=== PATIENT | female | born 1970 | race Caucasian/White ===

== ENCOUNTER 2023-06-14 05:00 | Observation (INO) ==
--- NOTE | 2023-05-24 12:13 | PAT Medication Instructions ---
Medication Instructions Date of Service May 24, 2023 Home Medications atorvastatin 20 mg tablet 20 mg PO QAM hydroxyzine HCl 25 mg tablet 25 mg PO QAM PRN anxiety lisinopril 20 mg tablet 20 mg PO QAM metformin 1,000 mg tablet 1,000 mg PO BID methocarbamol 500 mg tablet 500 mg PO HS PRN Muscle Spasm semaglutide 0.25 mg or 0.5 mg (2 mg/3 mL) subcutaneous pen injector (Ozempic) 0.25 mg subcut WK venlafaxine 37.5 mg tablet 37.5 mg PO HS MEDICATION INSTRUCTIONS: DO NOT take the morning of surgery hydroxyzine HCl 25 mg tablet 25 mg PO QAM PRN anxiety lisinopril 20 mg tablet 20 mg PO QAM metformin 1,000 mg tablet 1,000 mg PO BID Take morning of surgery With a small sip of water, OTHERWISE NOTHING TO EAT OR DRINK AFTER MIDNIGHT: atorvastatin 20 mg tablet 20 mg PO QAM Take evening before surgery venlafaxine 37.5 mg tablet 37.5 mg PO HS methocarbamol 500 mg tablet 500 mg PO HS PRN Muscle Spasm metformin 1,000 mg tablet 1,000 mg PO BID Other Notes As discussed with RN via phone interview, last dose before surgery to be 06/03/23: semaglutide 0.25 mg or 0.5 mg (2 mg/3 mL) subcutaneous pen injector (Ozempic) 0.25 mg subcut WK If you have any questions please call us at [phone] or [phone] or [phone] or [phone]
--- NOTE | 2023-05-28 10:16 | History & Physical Report ---
Date of Service May 28, 2023 Assessment & Plan (1) Bilateral primary osteoarthritis of knee: Plan: Severe end-stage bilateral knee osteoarthritis failed conservative management. Proceed with staged knee replacement starting with the left most symptomatic knee. Risks and benefits discussed. Scheduled for Macho total knee replacement. History of Present Illness Primary Care Provider: ESTHER Pineda Patient denies headaches, sweats, fevers, chills, double vision, blurred vision, cough, sore throat, dysphagia, chest pain, sob, wheezing, n/v/d/c, numbness, tingling, fatigue, urinary symptoms. ROS positive for hypertension, high cholesterol, anxiety/depression, low back pain, arthritic symptoms, obesity, kidney stones. Allergies Allergy/AdvReac Type Severity Reaction Status Date / Time empagliflozin AdvReac Unknown infection Verified 05/23/23 07:34 [From Sulia] Home Medications Medication Instructions Recorded Confirmed Type atorvastatin 20 mg tablet 20 mg PO QAM 05/23/23 05/23/23 History hydroxyzine HCl 25 mg tablet 25 mg PO QAM PRN anxiety 05/23/23 05/23/23 History lisinopril 20 mg tablet 20 mg PO QAM 05/23/23 05/23/23 History metformin 1,000 mg tablet 1,000 mg PO BID 05/23/23 05/23/23 History methocarbamol 500 mg tablet 500 mg PO HS PRN Muscle Spasm 05/23/23 05/23/23 History semaglutide 0.25 mg or 0.5 mg (2 0.25 mg subcut WK 05/23/23 05/23/23 History mg/3 mL) subcutaneous pen injector (Ozempic) venlafaxine 37.5 mg tablet 37.5 mg PO HS 05/23/23 05/23/23 History Past Med/Surg History Medical History Knee pain Diabetes Anxiety Depression Dyslipidemia HTN (hypertension) Surgical History History of esophagogastroduodenoscopy (EGD) Hx of arthroscopy of right knee History of endometrial ablation Hx of hernia repair Hx of cholecystectomy Family History Other No family history of adverse response to anesthesia Social History Smoking Status: Former smoker Tobacco Type: Cigarettes Smoking End Date: quit 20 yrs ago; Second Hand Exposure: No; Do You Dip or Chew Tobacco: No; Tobacco Cessation Education Requested by Patient: No Hx Alcohol Use: No Hx Substance Use: No Preferred Language: Nepali Communication Ability: Effective Insurance Agent Required: No Beliefs That Will Affect Care: None Current Living Situation: Spouse and Family Other Information That Helps Us Care for You: No Feels Safe at Home: Yes Safety Concerns: Feels Safe At This Time Assistive Devices: Glasses Assistive Devices Comment: glasses prn Review of Systems All systems reviewed & are unremarkable except as noted in HPI & below Physical Exam Constitutional: WD/WN, vitals as above Respiratory: normal respiratory effort; no respiratory distress Cardiovascular: Rate/Rhythm: regular rate and regular rhythm Musculoskeletal: Varus alignment both knees with medial joint line tenderness and right knee with arthroscopic scars no scars on left. Painful range of motion with 0 to 90 degrees range of motion right and 15 to 70 degrees on left otherwise circulation and sensorimotor exam intact. Skin: no rashes, warm and dry Neurologic: normal touch/pain/proprioception Psychiatric: A+Ox3, euthymic affect Results & Data Diagnostic Findings Bilateral knee x-rays demonstrate [id number] medial compartment with bone loss and tricompartmental osteoarthritis with varus knees.
--- NOTE | 2023-05-31 10:41 | Anesthesiology Consultation ---
Date of Service May 31, 2023 Assessment & Plan (1) Encounter for pre-operative examination: Chart Review Chart Review: Acceptable Risk for Surgery (pending PCP clearance 06/08/23) and Patient seen in Pre Admission Testing - Awaiting PCP clearance 06/08/23 (S- Leena SANTANA) (Please fax preop testing, including EKG, to PCP for review) - Check BSG AM DOS - Ozempic instructions: Patient takes on (Saturdays). Patient informed at PAT visit to stop 7 days prior to surgery- voiced understanding. Patient's last dose of Ozempic scheduled 06/03/23. Patient will be off Ozempic x 11 days by DOS on 06/14/23 - Patient is NOT an ideal OPJ candidate (currently 23 hour obs) Per PAT appt on 05/31/23, no recent illness/disease exposures, illness related symptoms, or recent illness/disease positive tests. Will leave to surgeon's discretion if preop Covid testing needed Teaching & Discussion Pre-Anesthesia Teaching/Discussion Notes: Instructed NPO after midnight before surgery,except medications with 15 cc of water. Medication instructions provided according to the PAT guidelines. History Surgery Operation Date: 06/14/23 11:15 Proposed Procedures p Left Total Knee Arthroplasty - Curry Balderrama MD Height/Weight Height: 5 ft 1.5 in Weight: 114.5 kg Allergies Allergy/AdvReac Type Severity Reaction Status Date / Time liraglutide [From Victoza] AdvReac Intermediate Stomach Verified 05/31/23 10:35 pains/decreased appetite empagliflozin AdvReac Unknown infection Verified 05/23/23 07:34 [From Jardiance] Medications Home Medications Medication Instructions Recorded Confirmed Last Taken atorvastatin 20 mg tablet 20 mg PO QAM 05/23/23 05/23/23 Unknown hydroxyzine HCl 25 mg tablet 25 mg PO QAM PRN anxiety 05/23/23 05/23/23 Unknown lisinopril 20 mg tablet 20 mg PO QAM 05/23/23 05/23/23 Unknown metformin 1,000 mg tablet 1,000 mg PO BID 05/23/23 05/23/23 Unknown methocarbamol 500 mg tablet 500 mg PO HS PRN Muscle Spasm 05/23/23 05/23/23 Unknown semaglutide 0.25 mg or 0.5 mg (2 0.25 mg subcut WK 05/23/23 05/23/23 Unknown mg/3 mL) subcutaneous pen injector (Ozempic) venlafaxine 37.5 mg tablet 37.5 mg PO HS 05/23/23 05/23/23 Unknown Past Medical History Medical History (Updated 05/31/23 @ 10:38 by Ludy Paz PA-C) Anxiety Depression Diabetes Stable per patient Dyslipidemia HTN (hypertension) Knee pain Bilateral - getting left TKA first per ortho recommendations Low back pain chronic x years Exercise / Class Metabolic Activity III < 4 Walking/Shop/Light housework (no chest pain or SOB with flat surface ambulation ) Past Family History Family History Other No family history of adverse response to anesthesia Past Surgical History Surgical History History of endometrial ablation History of esophagogastroduodenoscopy (EGD) Hx of arthroscopy of right knee Hx of cholecystectomy Hx of hernia repair Past Anesthesia History No Hx of Anesthesia Complications and No Family Hx of Anesthesia Complications (with exception to mother- slow to wake- groggy- no reintubation or ICU stay ) History of PONV No Hx of PONV and No Hx of Motion Sickness Social History Smoking Status: Former smoker Do You Dip or Chew Tobacco: No Smoking End Date: quit 20 yrs ago Hx Alcohol Use: No Hx Substance Use: No substance use type: does not use Review of Systems - Hx of snoring- no known witnessed apnea- no hx of sleep study Patient denies chest pain, shortness of breath, dyspnea on exertion, reflux, cough, wheezing, palpitations. No hx of seizures, stroke, CO. No hx of blood clots or blood transfusions Physical Exam Vital Signs VITALS BP 111/75 P 94 TEMP SP02 97% RESP 16 Constitutional no acute distress ENMT Mouth: no TMJ clicking Thyromental Distance: > or= 3.5 Finger Breadths (3.5) Mallampati Class: III Broken teeth on the side and molars Missing molars Neck + thick neck (mild); neck extension not limited Respiratory normal respiratory effort; no respiratory distress Auscultation: lungs clear to auscultation bilaterally; no wheezes Cardiovascular Rate/Rhythm: regular rate and regular rhythm Heart Sounds: no murmur Vessels: no carotid bruit Musculoskeletal Spine: + pain with cervical ROM (mild) Extremities: extremities normal to inspection Psychiatric Orientation: alert Lab Results Anesthesia Preop Results Results Anesthesia Widget: WBC 8.82 K/ul (4.8-10.8) 05/31/23 Hgb 13.1 g/dl (12.0-16.0) 05/31/23 Hct 39.9 % (37.0-47.0) 05/31/23 Plt 320 K/uL (130-400) 05/31/23 Na 138 mmol/L (136-145) 05/31/23 K 4.4 mmol/L (3.5-5.1) 05/31/23 Cl 103 mmol/L (98-107) 05/31/23 CO2 26 mmol/L (21-32) 05/31/23 BUN 9 mg/dl (6-23) 05/31/23 Creat 0.48 mg/dl (0.6-1.2) L 05/31/23 Glucose Level 197 mg/dl (70-99(Fasting)) H 05/31/23 PT 10.7 Seconds (9.0-12.0) 05/31/23 PTT 29 Seconds (21-31) 05/31/23 INR 1.0 (0.9-1.1) 05/31/23 HA1c 8.2 % (4.5-5.6) H 05/31/23 Urine Color Yellow 05/31/23 Urine Appearance Clear (Clear) 05/31/23 Urine pH 5.5 (4.5-7.5) 05/31/23 Urine Specific [place] 1.012 (1.000-1.030) 05/31/23 Urine Protein Negative (Negative) 05/31/23 Urine Glucose (UA) Negative (Negative) 05/31/23 Urine Ketones Negative (Negative) 05/31/23 Urine Blood Negative (Negative) 05/31/23 Urine Nitrite Negative (Negative) 05/31/23 Urine Bilirubin Negative (Negative) 05/31/23 Urine Urobilinogen Negative (Negative) 05/31/23 Urine Leukocyte Esterase Trace (Negative) H 05/31/23 Urine WBC (Auto) 6-10 /hpf (0-5) H 05/31/23 Urine RBC (Auto) 0-2 /hpf (0-2) 05/31/23 Urine Hyaline Casts (Auto) 0-2 /lpf (0-2) 05/31/23 Urine Epithelial Cells (Auto) 3-5 /hpf (0-2) H 05/31/23 Urine Bacteria (Auto) None Seen (None Seen) 05/31/23 Blood Type A Positive 05/31/23 Antibody Screen NEGATIVE 05/31/23 Testing Electrocardiogram Date: 05/31/23 Findings: + NSR @ (85bpm) Incomplete RBBB Poor R wave progression, consider anterior CO vs lead placement vs LVH (Discussed with Dr. Bro- EKG from [facility] from 12/2022 showed poor R wave progression but initial forces of leads differ, DSE from 2020 WNL, patient with PCP clearance 06/08/23- patient can proceed as scheduled without additional work up at this time) Chest X-Ray Date: 05/31/23 FINDINGS: Lung volumes are normal. Lungs are clear. There is no pneumothorax or pleural effusion. There is borderline cardiomegaly. Mediastinal contours are normal. There is no evidence for pulmonary edema. IMPRESSION: No acute cardiopulmonary findings. Stress Test Date: 09/09/20 Type: DSE Resting EF: 62% Resting LV Function: normal Resting RWMA: + none Negative DSE and EKG for ischemia at MPHR 86% Stress EKG normal- occasional PVCs with stress- ventricular couplets noted with stress. Hypertensive hemodynamic response to dobutamine. Grade I DD. Mild ND
[2023-06-14] MEDS: CeleBREX 200 MG CAP PO SCH (05:48)
[2023-06-14] MEDS: ACETAMINOPHEN 500 MG TAB PO SCH ×2 (05:48→13:42)
[2023-06-14] MEDS: GABAPENTIN 900 MG DOSE PO SCH (05:48)
[2023-06-14] MEDS: METOCLOPRAMIDE HCL 10 MG TABLET PO SCH (05:48)
[2023-06-14] MEDS: LR 60ML/HR IV SCH (05:49)
[2023-06-14] MEDS: LR 500ML BOLUS, THEN 15ML/HR IV SCH (05:49)
[2023-06-14] MEDS: FAMOTIDINE 20 MG TAB PO SCH (05:49)
[2023-06-14] MEDS ORDERED: BUPIVACAINE 0.5 % 5 MG/1 ML PF 10ML VIAL ONE (06:07)
[2023-06-14] MEDS ORDERED: ROPIVACAINE 0.5% 5 MG/ML 30 ML VIAL ONE (06:07)
[2023-06-14] MEDS ORDERED: ONDANSETRON INJ 2 MG/ML 2 ML VIAL ONE (06:33)
[2023-06-14] MEDS ORDERED: DEXAMETHASONE SOD INJ 4 MG/ML VIAL ONE (06:33)
[2023-06-14] MEDS ORDERED: fentaNYL citrate PF 100 MCG/2 ML VIAL ONE ×2 (06:33→07:28)
[2023-06-14] MEDS ORDERED: LIDOCAINE 2% 2 ML VIAL/AMP(20MG/ML) INFIL ONE (06:33)
[2023-06-14] MEDS ORDERED: PROPOFOL IV EMULSION 10 MG/ML 20 ML VIAL IV ONE ×3 (06:33→06:34)
[2023-06-14] MEDS ORDERED: MIDAZOLAM HCL 1 MG/ML 2ML VIAL ONE (06:33)
--- NOTE | 2023-06-14 06:43 | Anesthesiology Consultation ---
Date of Service June 14, 2023 History Surgery Operation Date: 06/14/23 07:00 Proposed Procedures p Left Total Knee Arthroplasty - Curry Balderrama MD Height/Weight Height: 5 ft 1.5 in Weight: 113.9 kg Allergies Allergy/AdvReac Type Severity Reaction Status Date / Time liraglutide [From Victoza] AdvReac Intermediate Stomach Verified 06/14/23 05:39 pains/decreased appetite empagliflozin AdvReac Unknown infection Verified 06/14/23 05:39 [From Jardiance] Medications Home Medications Medication Instructions Recorded Confirmed Last Taken atorvastatin 20 mg tablet 20 mg PO QAM 05/23/23 06/14/23 06/14/23 03:00 hydroxyzine HCl 25 mg tablet 25 mg PO QAM PRN anxiety 05/23/23 06/14/23 Unknown lisinopril 20 mg tablet 20 mg PO QAM 05/23/23 06/14/23 06/13/23 05:00 metformin 1,000 mg tablet 1,000 mg PO BID 05/23/23 06/14/23 06/13/23 18:00 methocarbamol 500 mg tablet 500 mg PO HS PRN Muscle Spasm 05/23/23 06/14/23 06/13/23 18:00 semaglutide 0.25 mg or 0.5 mg (2 0.25 mg subcut WK 05/23/23 06/14/23 06/03/23 mg/3 mL) subcutaneous pen injector (Ozempic) venlafaxine 37.5 mg tablet 37.5 mg PO HS 05/23/23 06/14/23 06/13/23 18:00 Active Medications Generic Name Dose Route Start Last Admin Trade Name Freq PRN Reason Stop Dose Admin Acetaminophen 1,000 mg 06/14/23 06:00 06/14/23 05:48 Acetaminophen 500 Mg Tab PO 06/14/23 18:00 1,000 mg PREOP SHELLY Administration Celecoxib 200 mg 06/14/23 06:00 06/14/23 05:48 Celebrex 200 Mg Cap PO 06/14/23 18:00 200 mg PREOP SHELLY Administration Famotidine 20 mg 06/14/23 06:00 06/14/23 05:49 Famotidine 20 Mg Tab PO 06/14/23 18:00 20 mg PREOP SHELLY Administration Gabapentin 900 mg 06/14/23 06:00 06/14/23 05:48 Gabapentin 900 Mg Dose PO 06/14/23 18:00 900 mg PREOP SHELLY Administration Lactated Ringer's 1,000 mls @ 15 mls/hr 06/14/23 06:00 06/14/23 05:49 Lr IV 06/14/23 18:00 15 mls/hr .Q24H SHELLY Administration Lactated Ringer's 1,000 mls @ 60 mls/hr 06/14/23 06:00 06/14/23 05:49 Lr IV 06/14/23 22:39 Not Given .[id number] SHELLY Metoclopramide HCl 10 mg 06/14/23 06:00 06/14/23 05:48 Metoclopramide Hcl 10 Mg Tablet PO 06/14/23 18:00 10 mg PREOP SHELLY Administration NPO Date Last Intake of Fluids: 06/13/23 Time Last Intake of Fluids: 21:00 Date Last Intake of Solids: 06/13/23 Time Last Intake of Solids: 21:00 Past Medical History Medical History Low back pain chronic x years Knee pain Bilateral - getting left TKA first per ortho recommendations Diabetes Stable per patient Anxiety Depression Dyslipidemia HTN (hypertension) Past Family History Family History Other No family history of adverse response to anesthesia Past Surgical History Surgical History (Updated 06/14/23 @ 05:39 by Sherine Beltran RN) History of tubal ligation History of esophagogastroduodenoscopy (EGD) Hx of arthroscopy of right knee History of endometrial ablation Hx of hernia repair Hx of cholecystectomy Social History Smoking Status: Former smoker Do You Dip or Chew Tobacco: No Smoking End Date: quit 20 yrs ago Hx Alcohol Use: No Hx Substance Use: No substance use type: does not use Physical Exam Vital Signs Last Vital Signs Temp 36.8 C 06/14/23 05:42 Pulse 97 H 06/14/23 05:42 Resp 18 06/14/23 05:42 BP 149/81 H 06/14/23 05:42 Pulse Ox 95 06/14/23 05:42 O2 Del Method Room Air 06/14/23 05:42 Testing Laboratory Results 06/14/23 05:37 POC Glucose 213 H Electrocardiogram Date: 05/31/23 Findings: + NSR @ (85bpm) Incomplete RBBB Poor R wave progression, consider anterior IL vs lead placement vs LVH (Discussed with Dr. Bro- EKG from [facility] from 12/2022 showed poor R wave progression but initial forces of leads differ, DSE from 2020 WNL, patient with PCP clearance 06/08/23- patient can proceed as scheduled without additional work up at this time) Chest X-Ray Date: 05/31/23 FINDINGS: Lung volumes are normal. Lungs are clear. There is no pneumothorax or pleural effusion. There is borderline cardiomegaly. Mediastinal contours are normal. There is no evidence for pulmonary edema. IMPRESSION: No acute cardiopulmonary findings. Stress Test Date: 09/09/20 Type: DSE Resting EF: 62% Resting LV Function: normal Resting RWMA: + none Negative DSE and EKG for ischemia at MPHR 86% Stress EKG normal- occasional PVCs with stress- ventricular couplets noted with stress. Hypertensive hemodynamic response to dobutamine. Grade I DD. Mild CO
[2023-06-14] MEDS ORDERED: PROMETHAZINE HCL 6.25 MG in SODIUM CHLORIDE 0.9% 50 ML IV PRN (06:46)
[2023-06-14] MEDS ORDERED: ATROPINE SULFATE 0.1 MG/ML 10ML SYR IV PRN (06:46)
[2023-06-14] MEDS ORDERED: ePHEDrine sulfate 50 MG/ML AMP IV PRN (06:46)
--- NOTE | 2023-06-14 06:49 | History & Physical Bridge Note ---
Date of Service June 14, 2023 History & Physical Bridge Note I have examined the patient, reviewed the History & Physical and in the interval since the performance of the History & Physical I have noted the following changes of clinical significance: no changes noted
[2023-06-14] MEDS: TRANEXAMIC ACID 1,000 MG **IV Pre-op IV SCH (06:50)
[2023-06-14] MEDS: ceFAZolin 2000MG 2,000 MG/15 ML SYR IV SCH ×2 (07:13→16:15)
[2023-06-14] MEDS ORDERED: ROCURONIUM BROMIDE 10 MG/ML 5 ML VIAL IV ONE (07:30)
[2023-06-14] MEDS ORDERED: HYDROmorphone INJ 2 MG/ML SYR/VIAL ONE (07:42)
[2023-06-14] MEDS ORDERED: SUGAMMADEX SODIUM 200 MG/2 ML VIAL IV ONE (07:56)
[2023-06-14] MEDS: ROPIV 0.5% 246mg, Ketorolac 30mg, EPINEPHrine 0.5mg in NSS INFIL SCH (08:28)
[2023-06-14] MEDS: TRANEXAMIC ACID 1,000 MG **IV Intra-op IV SCH (09:03)
[2023-06-14] MEDS: ORTHO JOINT ANESTHETIC ONE (09:04)
--- NOTE | 2023-06-14 09:07 | Operative Report ---
Post Operative Report Pre & Post Diagnosis Operation Date: 06/14/23 07:00 Pre-Op Diagnosis: Left Knee Osteoarthritis, morbid obesity BMI 46.7 Post-Op Diagnosis: Left Knee Osteoarthritis, morbid obesity BMI 46.7 I identified the patient and participated in the time-out.: Yes Procedure Operation Date: 06/14/23 07:00 Actual Procedures p Left Total Knee Arthroplasty(Left), lateral release, warner and Acticoat superficial wound VAC application, increased difficulty morbid obesity BMI 46.7- Curry Balderrama MD Surgeon Curry Balderrama MD Application Support Lead Antoni REY Estimated Blood Loss 5 Findings Consistent with Post-Op Diagnosis Specimens Bone cuts Drains 2 Hemovac Anesthesia Type General Regional Complications none Disposition Disposition: Recovery Room Indications 52-year-old female with severe bilateral knee osteoarthritis. She is completely disabled by the pain and has significant decreased range of motion both knees and has failed all conservative management including injections, therapy and bracing. Description of Procedure Patient taken to the operating room the size under general regional block anesthesia. Patient was placed supine on the operating table. A pneumatic tourniquet was placed about the obese left upper thigh. The left lower extremity was prepped and draped in sterile fashion. Knee exam demonstrated 10 through 100 degrees range of motion no pseudolaxity and stiff knee and an obese leg. The leg was elevated exsanguinated with an Esmarch bandage and pneumatic tourniquet was raised to 350 millimeters of mercury. Skin incised sharply in longitudinal fashion. Subcutaneous flaps elevated. Incision was made through the medial retinaculum extending up in the mid third of the quadriceps tendon and down to the medial tibial tubercle. Intra-articular findings demonstrated tricompartmental osteoarthritis mainly medial compartment bone loss in the medial compartment varus knee large posterior osteophytes medially. The Outright triathlon total knee arthroplasty system was used. To expose the knee the infrapatellar fat pad was resected. The meniscal remnants and cruciate ligaments were resected. The anterior fat pad over the femur in the area of the location of the anterior flange of the femoral component was resected. The lateral synovial bands were released. The femur was exposed. An intramedullary drill hole was made into the canal. A guide adrienne was placed. Distal femoral cutting guide was adjusted to resect a 5 degree valgus cut with 10 millimeters distal femur resected. The knee was extended and a subperiosteal peel lateral release was performed around the patella. Patella width was measured and width was reproduced using a freehand cut technique and a 31 x 9 symmetrical patella component. The 3 drill holes were made and the excess lateral facet was beveled off to prevent any impingement. Attention was taken back to the femur which was exposed with retractors and the femoral sizing guide was pinned in position. The drill holes were placed in 3 of external rotation to match the epicondylar axis. The femur sized for a 4 component. The 4-in-1 cutting block was placed and then the anterior posterior and chamfer cuts are made. The tibia was then subluxed. The external tibial cutting guide was adjusted to make a perpendicular cut to the long axis of the tibia below the most deficient bone loss side. Cut was adjusted for slope. A lamina twisting operator was used and the flexion extension gaps were balanced. No releases were required. All posterior osteophytes removed. All meniscal remnants were resected. The tibia exposed and the trial tibial component size 3 was maximally externally rotated in line with the tibial tubercle and pinned in position. The punch for stem was used. The notch cutting device was centered appropriately and the femoral notch cut was made. The femoral trial was inserted. Trial tibial inserts were placed and size 11 gave balanced ligaments through flexion and extension. Patella tracking was assessed. The patella tracked laterally so I had to do a lateral release which I did extra-articular early leaving the synovium intact and the patella tracked centrally afterward. The trial components were then removed and the orthomix anesthetic cocktail was injected per protocol. The knee was then copiously irrigated with pulsatile lavage saline solution. Final components were then cemented with Refobacin cement. Xperience irrigation placed over metal compoments prior to polyethylene insertion. Final components were Macho triathlon size 4 left femoral component, 3 tibial component with a size 11 X.3 polyethylene posterior stabilized tibial bearing insert and a 31 x 9 mm symmetrical X.3 polyethylene patella component. After the cement cured further pulsatile lavage irrigation was then performed with Xperience and 2 Hemovac drains were brought out laterally. The quadriceps tendon and medial retinaculum were closed with figure of 8 #1 Vicryl sutures. The knee was taken through full range of motion and the repair was secure. Knee range of motion was 0 through 125 degrees. The subcutaneous tissues were closed with 2-0 Vicryl sutures. Skin was closed with silvino. A warner and Acticoat superficial wound VAC was applied. The patient tolerated the procedure well. Antoni REY was my physician butcher assistant who participated as litigation assistant and was involved in all aspects of the procedure including patient positioning prepping and draping,leg positioning ,soft tissue retraction and instrument management and participated in the closing and wound VAC application and will participate in postoperative care of the patient. The patient tolerated the procedure well. There was increased level difficulty due to morbid obesity adding 30 minutes of the procedure time I attest to the content of the Intraoperative Record and any orders documented therein. Any exceptions are noted below.
[2023-06-14] MEDS: INSULIN HUMAN REGULAR SC STA (09:38)
[2023-06-14] MEDS ORDERED: NovoLIN-R INSULIN PER UNIT CHARGE SC STA (09:40)
[2023-06-14] MEDS: HYDROmorphone INJ 2 MG/ML SYR/VIAL IV PRN (10:05)
[2023-06-14] MEDS ORDERED: ONDANSETRON INJ 2 MG/ML 2 ML VIAL IV PRN (11:00)
[2023-06-14] MEDS ORDERED: hydrOXYzine HCl 25 MG TAB PO PRN (11:00)
[2023-06-14] MEDS ORDERED: oxyCODONE HCL IR 5 MG TAB (IMMEDIATE RELEASE) PO PRN (11:00)
[2023-06-14] MEDS ORDERED: HYDROmorphone INJ 0.5 MG/0.5 ML SYR IV PRN (11:00)
[2023-06-14] MEDS ORDERED: NALOXONE HCL 0.4 MG/1 ML VIAL/CARP IV PRN (11:00)
[2023-06-14] MEDS ORDERED: MAGNESIUM HYDROXIDE SUSP 30 ML UDC PO PRN (11:00)
[2023-06-14] MEDS ORDERED: diphenhydrAMINE 50 MG/ML VIAL IV PRN (11:00)
[2023-06-14] MEDS ORDERED: PHARMACY GLYCEMIC MGMT CONSULT PRN (11:00)
[2023-06-14] MEDS ORDERED: bisacodyL 10 MG SUPP PR PRN (11:00)
[2023-06-14] MEDS: NovoLIN-R INSULIN PER UNIT CHARGE ONE (11:04)
[2023-06-14] MEDS: SODIUM CHLORIDE 0.9% 1,000 ML IV SCH (11:15)
--- NOTE | 2023-06-14 11:56 | Pharmacy Report ---
Pharmacy Glycemic Short Note 2 - Date of Service June 14, 2023 - Glycemic Short BSG Results (Last 24 hours): 06/14/23 06/14/23 06/14/23 05:37 09:31 10:24 POC Glucose 213 H 271 H 266 H 06/14/23 11:28 POC Glucose 287 H OUTPATIENT ANTIDIABETIC REGIMEN: * metformin 1000 mg BID, ozempic 0.25 mg weekly * A1c 8.2% 05/31/23 ASSESSMENT: * Patient admitted POD #0 from left total knee arthroplasty, appears to have received 8 mg of dexamethasone IV in the OR * BSGs elevated upon admission, likely to increase with steroid dose. Patient received 5 units of regular insulin subcutaneously in PACU for BSG 271 mg/dL * BSG 287 mg/dL ~1130. Will give 1x dose of lantus now with additional scale for PM if needed. Start novolog between adjusted body weight and actual body weight stress of 3. Monitor. * Overnight checks. PLAN FOR INPATIENT GLYCEMIC CONTROL: * Hold outpatient oral diabetes medications * Basal insulin * Lantus 20 units x 1 now. Scale for PM 0/10 units * Bolus insulin * NovoLog per scale ACHS or Q6hrs while NPO * Goal Range: Low 110 mg/dL - High 140 mg/dL * Correction Factor: 25 mg/dL/unit * Nutritional / Prandial insulin per carb ratio of 1 unit per 6 grams CHO consumed
[2023-06-14] MEDS: INSULIN ASPART PER UNIT CHARGE SC SCH ×2 (12:27→23:34)
[2023-06-14] MEDS: LANTUS PER UNIT CHARGE SC ONE ×2 (12:28→20:33)
--- NOTE | 2023-06-14 13:03 | XRay Report ---
XR knee LT 1 or 2V routine CLINICAL HISTORY: Surgical Post Op TECHNIQUE: 2 views of the left knee were obtained. Comparison: None available at the time of this dictation. FINDINGS: Patient is status post total knee arthroplasty with expected postsurgical changes including soft tiss ue swelling and subcutaneous emphysema. No periarticular lucency or hardware fracture is seen. IMPRESSION: Expected postoperative appearance status post placement of total knee arthroplasty. ACT 112: Negative or not required by law. Electronically signed by: Jeb Mahoney M.D. 06/14/2023 1:02 PM
--- NOTE | 2023-06-14 13:09 | Anesthesiology Progress Note ---
Date of Service June 14, 2023 Anesthesia Post Procedure Vital Signs Vital Signs: Temp Pulse Pulse Resp BP Pulse Ox O2 Del Method 06/14/23 13:03 36.6 C 89 17 117/74 95 Room Air 06/14/23 11:55 36.6 C 90 16 119/74 96 Nasal Cannula 06/14/23 11:28 36.7 C 93 H 17 133/79 95 Nasal Cannula 06/14/23 11:00 37 C 96 H 17 154/80 H 95 Nasal Cannula 06/14/23 10:40 36.7 C 93 H 14 137/89 94 Nasal Cannula 06/14/23 10:30 97 H 12 132/93 92 Nasal Cannula 06/14/23 10:20 37 C 95 H 12 147/81 H 93 Nasal Cannula 06/14/23 10:10 93 H 14 124/86 92 Nasal Cannula 06/14/23 10:00 95 H 18 157/87 H 93 Oxymask 06/14/23 09:50 96 H 16 138/87 93 Oxymask 06/14/23 09:40 36.8 C 80 12 130/82 95 Oxymask 06/14/23 09:29 37.3 C 79 14 125/81 94 Oxymask 06/14/23 05:42 36.8 C 97 H 18 149/81 H 95 Room Air O2 Flow Rate 06/14/23 13:03 06/14/23 11:55 2 06/14/23 11:28 2 06/14/23 11:00 4 06/14/23 10:40 4 06/14/23 10:30 4 06/14/23 10:20 4 06/14/23 10:10 4 06/14/23 10:00 6 06/14/23 09:50 10 06/14/23 09:40 12 06/14/23 09:29 12 06/14/23 05:42 Pain Intensity Bilateral Knee: Pain Intensity: 4 Left Knee: Pain Intensity: 10 Transfer of Care Handoff Completed per policy Notes Mental Status: alert / awake / arousable and participated in evaluation Nausea / Vomiting: adequately controlled Pain: adequately controlled Airway Patency, RR, SpO2: stable & adequate BP & HR: stable & adequate Hydration State: stable & adequate Anesthetic Complications: no major complications apparent and Pt Satisfied with anesthetic care
--- NOTE | 2023-06-14 13:41 | Consultation ---
Date of Consultation June 14, 2023 Assessment & Plan (1) Bilateral primary osteoarthritis of knee: (2) Diabetes: (3) HTN (hypertension): (4) Anxiety: This is 52 year old F who has a significant PMH of T2DM, HTN, HLD who presents to elective knee replacement by Dr. Balderrama. Left knee osteoarthritis Status post left knee total replacement, POD #[address] Balderrama EBL:5 mL, drainage: 75 ml She tolerated procedure well Pain/wound management per orthopedic Activity and therapy as prescribed by orthopedic Tyler for DVT prophylaxis per orthopedic Monitor hemoglobin postoperatively encourage incentive spirometry, wean off o2 as able T2DM, uncontrolled a1c 8.2 hold metformin/ozempic lantus/novolog per protocol glycemic pharmacy managing, appreciate their assistance goal a1c given age < 7 HTN chronic, stable continue lisinopril with parameters HLD chronic, stable continue statin Anxiety continue effexor mood stable DVT ppx: Xarelto FULL CODE Dispo: per primary PCP: Leena Alcazar Thank you for this consultation. We will follow the patient with you during their hospital stay. You can reach a member of the [facility] Hospitalist Team 29/08 via hospitalist role on tiger text. A total of 45 minutes was spent coordinating, documenting, and providing care for this patient excluding time spent in the performance of separately billed services. This included personally viewing all current laboratories and imaging studies, medication reconciliation, outpatient chart review, and discussion with specialists. Supervising Physician Co-Signing Physician Notes I have seen and discussed the case with the collaborating advanced practitioner. I agree with the above H&P. I have reviewed and confirmed the patients medical history, the findings on physical examination, and the patients diagnosis and treatment plan with Jasiel ARREDONDO and agree with the information documented. In short, Ms. May is now s/p elective TKA of left knee. Patient denies any acute concerns on exam. Medical comanagement consult for chronic conditions: HTN, DMTII, HLD GENERAL APPEARANCE: AxOx4, generally well-appearing, fatigued s/p post op HEENT: NC, AT. MMM. EOMI, clear conjunctiva, oropharynx clear. NECK: Supple without lymphadenopathy. No stiffness or restricted ROM. HEART: Normal rate and regular rhythm, normal S1/S1, no m/r/g LUNGS: CTAB, moving air well. No crackles or wheezes are heard. ABDOMEN: Soft, nontender, nondistended with good bowel sounds heard. BACK: No CVAT, no obvious deformity. EXTREMITIES: Without cyanosis, clubbing or edema. Left extremity wrapped with TIFFANY bandage NEUROLOGICAL: Grossly nonfocal. Alert and oriented, moving all 4 extremities. CN not formally tested but appear grossly intact Skin: Warm and dry without any rash. #Left knee osteoarthritis s/p arthoplasty Trend CBC post op DVT ppx, PT/OT, and dispo per primary #DMTII On ozempic (sundays), metformin -SSI while inpatient #HTN resume home regimen Plan as above I spent a total of 15 minutes coordinating, documenting, and providing care for this patient excluding time spent in the performance of separately billed services. All of the aforementioned completed outside of collaborating with the assigned advanced practitioner for a full treatment plan. I have reviewed the advanced practitioner's documentation, and I agree with, and take responsibility for the plan of care History of Present Illness Requesting Physician: Post op medical management Reason for Consultation: Post op medical management Attending Physician: Curry Balderrama MD History of Present Illness This is 52 year old F who has a significant PMH of T2DM, HTN, HLD who presents to elective knee replacement by Dr. Balderrama. She tolerated the procedure well. She is drowsy post op. SHe denies f/c/s, chest pain, sob, n/v/d, abd pain. She denies any issues with constipation. Her meds were reconciled. She offers no post operative concerns. Allergies Allergy/AdvReac Type Severity Reaction Status Date / Time liraglutide [From Victoza] AdvReac Intermediate Stomach Verified 06/14/23 05:39 pains/decreased appetite empagliflozin AdvReac Unknown infection Verified 06/14/23 05:39 [From Jardiance] Home Medications Medication Instructions Recorded Confirmed Type atorvastatin 20 mg tablet 20 mg PO QAM 05/23/23 06/14/23 History hydroxyzine HCl 25 mg tablet 25 mg PO QAM PRN anxiety 05/23/23 06/14/23 History lisinopril 20 mg tablet 20 mg PO QAM 05/23/23 06/14/23 History metformin 1,000 mg tablet 1,000 mg PO BID 05/23/23 06/14/23 History methocarbamol 500 mg tablet 500 mg PO HS PRN Muscle Spasm 05/23/23 06/14/23 History semaglutide 0.25 mg or 0.5 mg (2 0.25 mg subcut WK 05/23/23 06/14/23 History mg/3 mL) subcutaneous pen injector (Ozempic) venlafaxine 37.5 mg tablet 37.5 mg PO HS 05/23/23 06/14/23 History Patient History Medical History (Updated 06/14/23 @ 13:35 by Yumiko Weathers PA-C) Low back pain chronic x years Knee pain Bilateral - getting left TKA first per ortho recommendations Diabetes Stable per patient Anxiety Depression Dyslipidemia HTN (hypertension) Surgical History History of tubal ligation History of esophagogastroduodenoscopy (EGD) Hx of arthroscopy of right knee History of endometrial ablation Hx of hernia repair Hx of cholecystectomy Family History Other No family history of adverse response to anesthesia Social History Smoking Status: Former smoker Tobacco Type: Cigarettes Smoking End Date: quit 20 yrs ago; Second Hand Exposure: No; Do You Dip or Chew Tobacco: No; Tobacco Cessation Education Requested by Patient: No Hx Alcohol Use: No Hx Substance Use: No Preferred Language: Greenlandic Communication Ability: Effective Heating And Ventilating Worker Required: No Beliefs That Will Affect Care: None Current Living Situation: Spouse and Family Other Information That Helps Us Care for You: No Feels Safe at Home: Yes Safety Concerns: Feels Safe At This Time Assistive Devices: Glasses Assistive Devices Comment: glasses prn Review of Systems Review of Systems: All systems reviewed & are unremarkable except as noted in HPI & below Physical Exam Physical Exam: please refer to Dr. Willis addendum for physical exam findings Results & Data Vital Signs (Past 12 Hours) Vital Signs Temp Pulse Pulse Resp BP Pulse Ox O2 Del Method 06/14/23 13:03 36.6 C 89 17 117/74 95 Room Air 06/14/23 11:55 36.6 C 90 16 119/74 96 Nasal Cannula 06/14/23 11:28 36.7 C 93 H 17 133/79 95 Nasal Cannula 06/14/23 11:00 37 C 96 H 17 154/80 H 95 Nasal Cannula 06/14/23 10:40 36.7 C 93 H 14 137/89 94 Nasal Cannula 06/14/23 10:30 97 H 12 132/93 92 Nasal Cannula 06/14/23 10:20 37 C 95 H 12 147/81 H 93 Nasal Cannula 06/14/23 10:10 93 H 14 124/86 92 Nasal Cannula 06/14/23 10:00 95 H 18 157/87 H 93 Oxymask 06/14/23 09:50 96 H 16 138/87 93 Oxymask 06/14/23 09:40 36.8 C 80 12 130/82 95 Oxymask 06/14/23 09:29 37.3 C 79 14 125/81 94 Oxymask 06/14/23 05:42 36.8 C 97 H 18 149/81 H 95 Room Air O2 Flow Rate 06/14/23 13:03 06/14/23 11:55 2 06/14/23 11:28 2 06/14/23 11:00 4 06/14/23 10:40 4 06/14/23 10:30 4 06/14/23 10:20 4 06/14/23 10:10 4 06/14/23 10:00 6 06/14/23 09:50 10 06/14/23 09:40 12 06/14/23 09:29 12 06/14/23 05:42 Laboratory Results Preoperative lab work on 05/30 revealed an unremarkable CBC and CMP except for mild hyperglycemia at 197, A1c was 8.2, urinalysis was negative for acute infection Diagnostic Findings Knee X-Ray 06/14/23 09:34 XR knee LT 1 or 2V routine CLINICAL HISTORY: Surgical Post Op TECHNIQUE: 2 views of the left knee were obtained. Comparison: None available at the time of this dictation. FINDINGS: Patient is status post total knee arthroplasty with expected postsurgical changes including soft tissue swelling and subcutaneous emphysema. No periarticular lucency or hardware fracture is seen. IMPRESSION: Expected postoperative appearance status post placement of total knee ar throplasty. ACT 112: Negative or not required by law. Electronically signed by: Jeb Mahoney M.D. 06/14/2023 1:02 PM Medications Administered Current Inpatient Medications Acetaminophen (Acetaminophen 500 Mg Tab) 1,000 mg PO Q8 [facility] Stop: 07/14/23 13:59 Atorvastatin Calcium (Atorvastatin 20 Mg Tab) 20 mg PO QAM [facility] Stop: 07/15/23 08:59 Bisacodyl (Bisacodyl 10 Mg Supp) 10 mg NV DAILY PRN PRN Reason: Constipation Stop: 07/14/23 10:59 Diphenhydramine HCl (Diphenhydramine 50 Mg/Ml Vial) 25 mg IV Q8H PRN PRN Reason: Itching Stop: 07/14/23 10:59 Docusate Sodium (Docusate Sodium 100 Mg Cap) 100 mg PO BID [facility] Stop: 07/14/23 20:59 Hydromorphone HCl (Hydromorphone Inj 0.5 Mg/0.5 Ml Syr) 0.5 mg IV Q4H PRN PRN Reason: Pain or Pre PT Stop: 06/28/23 10:59 Hydroxyzine HCl (Hydroxyzine Hcl 25 Mg Tab) 25 mg PO QA PRN PRN Reason: anxiety Stop: 07/14/23 10:59 Sodium Chloride (Nss) 1,000 mls @ 100 mls/hr IV .Q10H [facility] Stop: 06/15/23 06:00 Last Admin: 06/14/23 11:15 Dose: 100 mls/hr Cefazolin Sodium (Ancef 2000mg) 2,000 mg in 15 mls @ 3.75 mls/min IV Q8H [facility]; Protocol Stop: 06/14/23 23:33 Insulin Aspart (Insulin Aspart Per Unit Charge) 0 units SC ACHS [facility] Stop: 07/14/23 11:34 Last Admin: 06/14/23 12:27 Dose: 9 units Insulin Aspart (Insulin Aspart Per Unit Charge) 0 units SC TODAY@0000,0400 [facility] Stop: 06/15/23 04:01 Lisinopril (Lisinopril 20 Mg Tab) 20 mg PO QAM [facility] Stop: 07/15/23 08:59 Magnesium Hydroxide (Magnesium Hydroxide Susp 30 Ml Udc) 30 ml PO Q6H PRN PRN Reason: Constipation Stop: 07/14/23 10:59 Miscellaneous Information (Pharmacy Glycemic Mgmt Consult) 1 each N/A UD PRN PRN Reason: Consult Stop: 07/14/23 10:59 Multivitamins (Multivitamin Tab) 1 tab PO QAM [facility] Stop: 07/15/23 08:59 Naloxone HCl (Naloxone Hcl 0.4 Mg/1 Ml Vial/Carp) 0.1 mg IV Q5M PRN PRN Reason: Oversedation/Resp Depression Stop: 07/14/23 10:59 Ondansetron HCl (Ondansetron Inj 2 Mg/Ml 2 Ml Vial) 4 mg IV Q6H PRN PRN Reason: Nausea And Vomiting Stop: 07/14/23 10:59 Oxycodone HCl (Oxycodone Hcl Ir 5 Mg Tab (Immediate Release)) 5 - 10 mg PO Q4H PRN PRN Reason: Pain or Pre PT Stop: 06/28/23 10:59 Rivaroxaban (Rivaroxaban 10 Mg Tablet) 10 mg PO DAILY [facility] Stop: 07/15/23 08:59 Sennosides (Senna 8.6 Mg Tab) 17.2 mg PO HS [facility] Stop: 07/14/23 20:59 Venlafaxine HCl (Venlafaxine Hcl 37.5 Mg Tab) 37.5 mg PO [facility] Stop: 07/14/23 20:59 ECG Additional Comments: Preoperative EKG reviewed in person interpreted by myself as a ventricular rate of 85 bpm, normal sinus rhythm, incomplete right bundle branch block
[2023-06-14] MEDS ORDERED: LANTUS PER UNIT CHARGE SC ONE (14:15)
[2023-06-14] MEDS: DOCUSATE SODIUM 100 MG CAP PO SCH (20:21)
[2023-06-14] MEDS: VENLAFAXINE HCL 37.5 MG TAB PO SCH (20:21)
[2023-06-14] MEDS: SENNA 8.6 MG TAB PO SCH (20:21)
[2023-06-15 06:25] LABS: Hemoglobin 10.5 g/dl (12.0-16.0); Mean Corpuscular Hemoglobin 29.3 pg (25.0-34.0); Mean Corpuscular Hgb Conc 32.8 g/dL (32.0-36.0); Mean Corpuscular Volume 89.4 fL (80.0-100.0); Mean Platelet Volume 10.2 fL (9.4-12.4); Platelet Count 264 K/uL (130-400); RDW Coefficient of Variation 12.5 % (11.5-14.5); RDW Standard Deviation 40.5 fL (36.4-46.3); Red Blood Count 3.58 M/uL (4.20-5.40); White Blood Count 11.97 K/ul (4.8-10.8)
[2023-06-15 06:58] LABS: BUN Creatinine Ratio 29.2 (10-20); Calcium 8.3 mg/dl (8.6-10.3); Creatinine Clr Calc Pharmacy 160.3 ml/min; Est GFR (African American) 129.8 ml/min; Potassium 3.8 mmol/L (3.5-5.1)
[2023-06-15] MEDS: MULTIVITAMIN TAB PO SCH (08:21)
[2023-06-15] MEDS: RIVAROXABAN 10 MG TABLET PO SCH (08:21)
[2023-06-15] MEDS: ATORVASTATIN 20 MG TAB PO SCH (08:21)
[2023-06-15] MEDS: lisinopril 20 MG TAB PO SCH (08:21)
[2023-06-15] MEDS: LANTUS PER UNIT CHARGE SC SCH (08:27)
--- NOTE | 2023-06-15 09:04 | Orthopedic Progress Note ---
Date of Service June 15, 2023 Assessment & Plan (1) Bilateral primary osteoarthritis of knee: Plan: postop day 1 PT/OT protocols. Weightbearing as tolerated. DVT prophylaxis-Xarelto daily, SCDs, TRACE hose pain management as written. DC planning-patient is planning for outpatient PT. Plan for DC to home today. Admission and Anticipated Discharge Date Admission Date: June 14, 2023 Subjective Postop day 1 Patient sitting up in bed awake and alert. Finishing her breakfast. No complaints this morning. Pain is controlled. Patient has been up to the bathroom without difficulty. Denies shortness of breath, chest pain, lightheadedness. She is hoping to go home today. Patient had an episode last night where I was called that the drain had come disconnected at the [facility]. A new Hemovac set up was then started. Patient states that she has not had much drainage since that time. Physical Exam Physical Exam: Dressings are clean, dry, and intact. Calves are soft nontender. Neurovascular intact. Toes are mobile. She has good dorsiflexion and plantarflexion of her left foot. Minimal Hemovac drainage this morning Results & Data Vital Signs (Past 12 Hours) Vital Signs Temp Pulse Pulse Resp BP Pulse Ox O2 Del Method 06/15/23 07:58 36.8 C 76 18 124/74 95 Room Air 06/15/23 03:52 36.7 C 99 H 18 136/78 95 Room Air 06/14/23 23:39 36.6 C 95 H 16 132/72 94 Room Air Laboratory Results Laboratory Results WBC 11.97 K/ul (4.8-10.8) H 06/15/23 05:51 RBC 3.58 M/uL (4.20-5.40) L 06/15/23 05:51 Hgb 10.5 g/dl (12.0-16.0) L 06/15/23 05:51 Hct 32.0 % (37.0-47.0) L 06/15/23 05:51 MCV 89.4 fL (80.0-100.0) 06/15/23 05:51 MCH 29.3 pg (25.0-34.0) 06/15/23 05:51 MCHC 32.8 g/dL (32.0-36.0) 06/15/23 05:51 RDW Std Deviation 40.5 fL (36.4-46.3) 06/15/23 05:51 RDW Coeff of Soraya 12.5 % (11.5-14.5) 06/15/23 05:51 Plt Count 264 K/uL (130-400) 06/15/23 05:51 MPV 10.2 fL (9.4-12.4) 06/15/23 05:51 Sodium 140 mmol/L (136-145) 06/15/23 05:51 Potassium 3.8 mmol/L (3.5-5.1) 06/15/23 05:51 Chloride 107 mmol/L (98-107) 06/15/23 05:51 Carbon Dioxide 24 mmol/L (21-32) 06/15/23 05:51 Anion Gap 9 (3-11) 06/15/23 05:51 BUN 14 mg/dl (6-23) 06/15/23 05:51 Creatinine 0.48 mg/dl (0.6-1.2) L 06/15/23 05:51 Est Cr Clr Drug Dosing 160.3 ml/min 06/15/23 05:51 Est GFR ( Amer) 129.8 ml/min 06/15/23 05:51 Est GFR (Non-Af Amer) 112.0 ml/min 06/15/23 05:51 BUN/Creatinine Ratio 29.2 (10-20) H 06/15/23 05:51 Glucose 172 mg/dl (70-99(Fasting)) H 06/15/23 05:51 POC Glucose 180 mg/dl (70-99) H 06/15/23 07:26 Calcium 8.3 mg/dl (8.6-10.3) L 06/15/23 05:51 Impressions Knee X-Ray 06/14/23 09:34 XR knee LT 1 or 2V routine CLINICAL HISTORY: Surgical Post Op TECHNIQUE: 2 views of the left knee were obtained. Comparison: None available at the time of this dictation. FINDINGS: Patient is status post total knee arthroplasty with expected postsurgical changes including soft tissue swelling and subcutaneous emphysema. No periarticular lucency or hardware fracture is seen. IMPRESSION: Expected postoperative appearance status post placement of total knee arthroplasty. ACT 112: Negative or not required by law. Electronically signed by: Jeb Mahoney M.D. 06/14/2023 1:02 PM
--- OUTSIDE RECORDS SUMMARY | 2023-06-15 13:07 | External Medical Summary | Summary of Care ---
Author Name Unknown Organization [facility] Address [address] [place] [address] Phone [phone] Care Team Providers Care Leather Scraper Name Role Phone Leena Alcazar Primary Care Provider [phone] Reason for Visit * Reason Comments Outpatient Testing Encounter Details Date Type Department Care Team (Late st Contact Info) Description 06/08/2023 2:30 PM EDT Laboratory Laboratory, [address] [id number] [facility] [address] [place] [address] [employer] Other*[id number]; Type 2 diabetes mellitus with hemoglobin A1c goal of less than 7.0% ([facility]); Preop examination Allergies Active Allergy Reactions Criticality Noted Date Comments Empagliflozin Other (Please comment) 06/08/2023 Vaginal pain Liraglutide Abdominal pain 01/10/2020 Pt did not tolerate documented as of this encounter (statuses as of 06/08/2023) Medications Medication Sig Dispensed Refills Start Date End Date Status LancetsIndications :Type 2 diabetes mellitus with hemoglobin A1c goal of less than 7.0% (HCC) Use to test blood sugar once daily DX E11.9 100 Each 3 02/17/2022 Active Contour Monitor Device Use as directed. Check blood sugars once daily E11.9 1 Each 0 03/03/2022 Active Contour Test In Vitro Strip (Glucose Blood) Check blood sugars once daily E11.9 100 Strip 0 03/03/2022 Active Lisinopril 20 MG Oral Tablet (Prinivil) TAKE 1 TABLET BY MOUTH EVERY DAY 90 Tablet 3 10/11/2022 Active metFORMIN HCl 1000 MG Oral Tablet (Glucophage)Indica tions:DM type 2 with diabetic peripheral neuropathy (HCC) TAKE 1 TABLET BY MOUTH TWICE A DAY WITH BREAKFAST AND DINNER 180 Tablet 2 11/16/2022 Active Meloxicam 15 MG Oral Tablet Take 1 Tablet by mouth in the morning. 30 Tablet 1 12/06/2022 Active Additional Information Patient not taking.Reported on 06/08/2023 Meclizine HCl 25 MG Oral Tablet (Antivert)Indicati ons:Dizziness Take 1 Tablet by mouth 3 times a day as needed for Dizziness. 30 Tablet 1 12/28/2022 Active Additional Information Patient not taking.Reported on 06/08/2023 Methocarbamol 500 MG Oral Tablet (Robamol) TAKE 1 TABLET BY MOUTH IN THE MORNING AND 1 TABLET AT NOON AND 1 TABLET BEFORE BED-FOR MUSCLE SPASM 60 Tablet 0 04/10/2023 Active Venlafaxine HCl ER 37.5 MG Oral Capsule Extended Release 24 Hour (Effexor XR)Indications:Adj ustment disorder with anxious mood TAKE 1 CAPSULE BY MOUTH IN THE MORNING. DO NOT CUT, CRUSH OR CHEW. 30 Capsule 5 04/10/2023 Active hydrOXYzine HCl 25 MG Oral TabletIndications: Adjustment disorder with anxious mood TAKE 1 TABLET BY MOUTH THREE TIMES A DAY NEEDED FOR ANXIETY 40 Tablet 2 05/01/2023 Active Atorvastatin Calcium 20 MG Oral Tablet (Lipitor)Indicatio ns:Hyperlipidemia with target LDL less than 100 TAKE 1 TABLET BY MOUTH EVERY DAY 90 Tablet 0 04/30/2023 Active Ozempic (0.25 or 0.5 MG/DOSE) 2 MG/3ML Solution Pen-injector (Semaglutide(0.25 or 0.5MG/DOS))Indicat ions:Type 2 diabetes mellitus with hemoglobin A1c goal of less than 7.0% (HCC) INJECT 0.5 MG UNDER THE SKIN ONCE A WEEK. 3 mL 2 05/25/2023 Active Hospital, Clinic, or Other Facility Administered Medication Ordered Dose Route Frequency Start Date End Date Status atropine sulfate inj 0.4 mgIndications:Chest pain, unspecified type 0.4 mg IV PUSH PRN 09/09/2020 Active documented as of this encounter (statuses as of 06/08/2023) Active Problems Problem Noted Date Diagnosed Date Primary osteoarthritis of left knee 10/07/2019 HTN, goal below 140/90 04/06/2016 Hyperlipidemia with target LDL less than 100 01/2015 Overview: ICD-10 update of inactive term Type 2 diabetes mellitus wit h hemoglobin A1c goal of less than 7.0% 07/28/2009 Overview: ICD-10 update of inactive term documented as of this encounter (statuses as of 06/08/2023) Resolved Problems Problem Noted Date Diagnosed Date Resolved Date Type 2 diabetes mellitus with hyperlipidemia 1 01/24/2022 DM type 2 with diabetic peripheral neuropathy 11/23/19 18 02/23/2020 BMI 45.0-49.9, adult 05/31/2017 022 BMI 50.0-59.9, adult 05/03/2017 018 Body mass index (BMI) of 45. 0 to 49.9 in adult 11/07/2016 01/10/2017 Overview: Per Obesity protocol #1 Depression 08/13/2014 10/07/2019 Anxiety 08/13/2014 10/07/2019 HTN, goal below 130/80 03/18/201404/06 Iron deficiency anemia 03/18/201410/06 Anemia 06/11/2011 03/18/2014 Microalbuminuria 06/10/2011 04/17/2017 Diabetes mellitus, type 2 Obesity 04/06/2016 Dyslipidemia, goal to be determined 12/18/2014 Overview: Hyperlipidemia HTN, goal to be determined 0 03/18/2014 Overview: Hypertension, essential documented as of this encounter (statuses as of 06/08/2023) Immunizations Name Administration Dates Next Due Pneumococcal Polysaccharide PPV23 (Pneumovax) Seasonal Influenza, Quadrivalent, No Preserve, I M 11/18/2015 Seasonal Influenza, Split, IIV3, With Preserve, Inj 12/07/2013 documented as of this encounter Social History Tobacco Use Types Packs/Day Years Used Date Smoking Tobacco: Former Smokeless Tobacco: Never Comments:states approx 1991 Alcohol Use Standard Drinks/Week Comments No 0 (1 standard drink = 0.6 oz pur e alcohol) PHQ-2 Answer Date Recorded PHQ Adult Total Score 6 08/31/2022 Hunger Vital Sign Answer Date Recorded Within the past 12 months, y ou worried that your food would run out before you got the money to buy more. Never true 05/26/19 24 Within the past 12 months, t he food you bought just didn't last and you didn't have money to get more. Never true 05/26/2023 Sex and Gender Information Value Date Recorded Sex Assigned at Not on file Gender Identity Not on file Sexual Orientation Not on file Job Start Date Occupation Industry Not on file Not on file Not on file documented as of this encounter Plan of Treatment Upcoming Encounters Date Type Department Care Team (Late st Contact Info) Description 09/08/2023 12:20 PM EDT Office Visit [facility] [address] [phone] Leena Alcazar CRNP [address] [phone] Pending Results Name Type Priority Associated Diagnoses Date /Time MYCODE SUBSEQUENT ADULT Lab Routine MyCode Research Other*[id number] 06/08/2023 2:27 PM EDT BASIC METABOLIC PANEL Lab Routine Type 2 diabetes mellitus with hemoglobin A1c goal of less than 7.0% (HCC) Preop examination 06/08/2023 2:27 PM EDT HEMOGLOBIN A1C Lab Routine Type 2 diabetes mellitus with hemoglobin A1c goal of less than 7.0% (HCC) Preop examination 06/08/2023 2:27 PM EDT MYCODE SST1 Lab Routine [employer] Other*[id number] 06/08/2023 2:27 PM EDT MYCODE SST2 Lab Routine [employer] Other*[id number] 06/08/2023 2:27 PM EDT Scheduled Procedures Name Priority Associated Diagnoses Date/Ti me COLONOSCOPY FLEXIBLE PROXIMA L DIAGNOSTIC Recall Screening for colon cancer Health Maintenance Due Date Last Done Comments DTaP,Tdap,and Td Vaccines (1 - Tdap) 1988 Hepatitis B (1 of 3 - 19+ 3-dose series) 1988 HPV/Co-Test 11/27/1999 Pneumococcal Vaccine: Pediatrics (0 to 5 Years) and At-Risk Patients (6 to 64 Years) (2 of 2 - PCV) 11/14/2012 11/15/2011 Cologuard 2014 Colonoscopy 2014 Sigmoidoscopy 2014 Colorectal Cancer Screening 06/04/2015 Fecal Occult Blood Test 06/04/2015 06/03/2014 Zoster Vaccines (1 of 2) 11/27/2019 Cervical Cancer Screening 05/31/2020 Pap Smear 05/31/2020 05/31/2017, 10/14/2013 Mammogram 08/04/2021 08/04/2020, 12/07, 08/21/2017, Additional history exists COVID-19 Vaccine ( season) 2022 HbA1c 02/08/2023 08/08/2022, 03/09, 10/24/2020, Additional history exists Albumin/Creatinine Ratio 08/09/2023 023, 10/24/2020, 07/20/2019, Additional history exists B-12 08/09/2023 08/08/2022, 10/07, 12/29/2018, Additional history exists GFR 08/09/2023 08/08/2022, 03/09, 10/24/2020, Additional history exists Depression Screening 09/01/2023 08/31/2022, 05/15/19 15 Influenza Vaccine (FLU shot) (Season Ended) 2023 11/18/2015, 12/07/2013 Diabetic Eye Exam 06/07/2024 06/08/2023, , 04/28/2020, Additional history exists Diabetic Foot Exam 06/07/2024 06/08/2023, 0 04/28/2020, 05/24/2018, Additional history exists Lipid Panel 08/09/2027 08/08/2022, 10/07, 11/02/2019, Additional history exists GARDASIL-HPV IMMUNIZATION SERIES Aged Out No longer eligible based on patient's age to complete this topic MENINGOCOCCAL (MENACTRA/MENVEO) Aged Out No longer eligible based on patient's age to complete this topic documented as of this encounter Medical Devices Implanted Type Area Medical Radiation Therapist Device Identifier Shelf Expiration Date Model / Serial / Lot Patch Hernia Med [id number] - [id number] Implanted:Qty: 1 on 12/10/2015 by Mandy Polk, DO at OR [facility] N/A: Abdomen CR BARD : DAVOL 02/02/2019 [id number] / / [id number] documented as of this encounter Visit Diagnoses Diagnosis MyCode Research Other*[id number] Type 2 diabetes mellitus with hemoglobin A1c goal of less than 7.0% ([facility]) Preop examination Preoperative examination, unspecified documented in this encounter Advance Directives Latest Code Status on File Code Status Date Activated Date Inactivated Comments Full Code 12/10/2015 9:13 AM 12/10/2015 7:22 PM This order reflects the patients wishes and were consensually agreed upon. Question Answer Comments Discussion of Advance Directives occurred with: Not Discussed Does the patient have a Living Will? No Does the patient have Health Care Power of Security Systems Technician? No Care Teams Leather Scraper Relationship Specialty Start Date End Date Leena Alcazar CRNP [address] [id number] PCP - General Nurse Practitioner 12/14/22 documented as of this encounter
--- OUTSIDE RECORDS SUMMARY | 2023-06-15 13:07 | External Medical Summary | Summary of Care ---
Author Name Unknown Organization [facility] Address [address] [place] [address] Phone [phone] Care Team Providers Care Dinking Machine Operator Name Role Phone Leena Alcazar Primary Care Provider [phone] Reason for Visit * Reason Comments Physical-Exam Lt TKR on 06/14/[address] Balderrama at [facility]. No form per pt. Encounter Details Date Type Department Care Team (Late st Contact Info) Description 06/08/2023 1:40 PM EDT Office Visit [facility] [place] [address] [facility] [place] [phone] Leena Alcazar CRNP [address] [facility] [place] [id number] Preop examination*; Type 2 diabetes mellitus with hemoglobin A1c goal of less than 7.0% ([facility]); Primary osteoarthritis of left knee Allergies Active Allergy Reactions Criticality Noted Date [...] hemoglobin A1c goal of less than 7.0% ([facility]) INJECT 0.5 MG UNDER THE SKIN ONCE [...] Date Smoking Tobacco: Former Smokeless Tobacco: Never Tobacco Cessation:Counseling Given: No Comments:states approx 1991 Alcohol Use Standard Drinks/Week [...] on file documented as of this encounter Last Filed Vital Signs Vital Sign Reading Time Taken Comments Blood Pressure 130/70 06/08/2023 1:48 PM EDT Pulse 74 06/08/2023 1:48 PM EDT Temperature 36 C (96.8 F) 06/08/2023 1:48 PM EDT Respiratory Rate 17 06/08/2023 1:48 PM EDT Oxygen Saturation 98% 06/08/2023 1:48 PM EDT Inhaled Oxygen Concentration - - Weight 111.4 kg (245 lb 8 oz) 06/08/2023 1:48 PM EDT Height - - Body Mass Index 46.39 08/31/2022 10:29 AM EDT documented in this encounter Patient Instructions * Patient Instructions* Ning Newman CMA - 06/08/2023 1:45 PM EDT Diabetes: Keeping Feet Healthy Inspect your feet every day for signs of a problem. Diabetes can damage nerves in your feet and cause neuropathy. This condition makes it hard for you to feel injuries or sore spots. Diabetes can also change blood flow, making it harder for small problems, like a blister, to heal properly. In fact, minor injuries can quickly become serious infections that send you to the hospital. Practice self-care to protect your feet and keep them healthy. Take Special Care Inspect your feet daily for problems such as redness, blisters, cracks, dry skin, or numbness. Use a mirror to see the bottoms of your feet. Or, ask for help. Manage your diabetes. Monitor and control your blood sugar. Take all your medications as prescribed. Avoid walking barefoot, even indoors. Wash your feet with warm water and mild soap. Dry well, especially between toes. Dont treat corns or calluses yourself. Talk to your doctor or office asst (a doctor who specializes in foot care) if you need assistance trimming your toenails. Use moisturizing cream or lotion if you have dry skin, but dont use it between toes. Dont use heating pads on your feet. If you have neuropathy, you could get a burn and not feel it. Stop smoking. Smoking restricts blood flow and can make it harder for wounds to heal. Have Regular Checkups Foot problems can develop quickly. So be sure to follow your healthcare teams schedule for regular checkups. During office visits, take off your shoes and socks as soon as you get in the exam room. Ask your healthcare provider to examine your feet for problems. This will make it easier to find and treat small skin irritations before they get worse. Regular checkups can also help keep track of the blood flow and feeling in your feet. If you have neuropathy, you may need to have checkups more often. Wear Proper Footwear Wearing proper footwear is very important. If areas of your feet have been damaged by too much pressure, your healthcare provider may recommend changing your footwear. In some cases, avoiding high heels or tight work boots may be all thats needed. Or, your healthcare provider may recommend special shoes or custom inserts. These help protect your feet and keep existing irritations from getting worse. If you need special footwear, ask your healthcare provider if you qualify for [employer] diabetic shoe program. Make Sure Shoes and Socks Fit Any pair of shoes--new or old--should feel comfortable as soon as you put them on. There shouldnt be any rubbing when you walk. Wear the right shoe for any activity. For instance, a running shoe is designed to keep your feet injury-free while jogging. Buy shoes at the end of the day, when your feet are larger. Make sure they provide support without feeling too loose. Make sure your socks fit, t oo. Wear soft, seamless, well-padded socks for activity. Cotton or microfiber socks are best to help to absorb sweat. To protect your feet, avoid shoes that are open-toed or open-heeled. If you have questions about what kinds of shoes and socks are best, talk to your healthcare team. Get Regular Exercise Regular exercise improves blood flow in your feet. It also increases foot strength and flexibility.Gentle exercises, like walking or riding a stationary bicycle, are best. You can also do special foot exercises. Just be sure to talk with your healthcare provider before starting any exercise program. Also mention if any exercise causes pain, redness, or other signs of foot problems. Note: If you have any kind of break in the skin of your foot or ankle, keep the area clean. Then call your doctor--especially if the area doesnt appear to be healing. 2412-2609 [employer], [address] [place] [address]. All rights reserved. This information is not intended as a substitute for professional medical care. Always follow your healthcare professional's instructions. documented in this encounter Progress Notes * Leena Alcazar CRNP - 06/08/2023 1:57 PM EDT Images from the original note were not included. Pre-Operative Medical Evaluation Procedure Information Type of Surgery: Left TKR Referring Physician / Surgeon: Dr. Balderrama. Date of procedure: 06/14/2023 Brief History of Present Illness: She had preop testing done already, no testing is needed today. She has been having progressively worsening knee pain. When she stands up she has to take her time.She reports decreased range of motion. She has had injections previously which were helpful initially, but have not worked the last few times. She is planning to stay in the hospital overnight. Review of Systems Constitutional: Positive for activity change (decreased activity d/t pain). Negative for fatigue. HENT: Negative for congestion and rhinorrhea. Respiratory: Negative for cough and shortness of breath. Cardiovascular: Negative for chest pain and palpitations. Genitourinary: Negative for difficulty urinating. Musculoskeletal: Positive for arthralgias. Neurological: Negative for dizziness, syncope and light-headedness. Psychiatric/Behavioral: Negative for sleep disturbance. Medical History Problem List: Type 2 diabetes mellitus with hyperlipidemia ([facility]) (10/29/2020) Primary osteoarthritis of left knee (10/07/2019) DM type 2 with diabetic peripheral neuropathy ([facility]) (11/22/2017) BMI 45.0-49.9, adult ([facility]) (05/31/2017) BMI 50.0-59.9, adult ([facility]) (05/03/2017) Body mass index (BMI) of 45.0 to 49.9 in adult ([facility]) (11/07/2016) HTN, goal below 140/90 (04/06/2016) Hyperlipidemia with target LDL less than 100 (12/18/2014) Depression (08/13/2014) Anxiety (08/13/2014) HTN, goal below 130/80 (03/18/2014) Iron deficiency anemia (03/18/2014) Anemia (06/11/2011) Microalbuminuria (06/10/2011) Type 2 diabetes mellitus with hemoglobin A1c goal of less than 7.0% ([facility]) (07/28/2009) Diabetes mellitus, type 2 ([facility]) Obesity Dyslipidemia, goal to be determined HTN, goal to be determined Current Medications Ozempic (0.25 or 0.5 MG/DOSE) 2 MG/3ML Solution Pen-injector (Semaglutide(0.25 or 0.5MG/DOS)), 0.5 mg, Subcutaneous, Q Week hydrOXYzine HCl 25 MG Oral Tablet, TAKE 1 TABLET BY MOUTH THREE TIMES A DAY NEEDED FOR ANXIETY Atorvastatin Calcium 20 MG Oral Tablet (Lipitor), TAKE 1 TABLET BY MOUTH EVERY DAY Methocarbamol 500 MG Oral Tablet (Robamol), TAKE 1 TABLET BY MOUTH IN THE MORNING AND 1 TABLET AT NOON AND 1 TABLET BEFORE BED-FOR MUSCLE SPASM Venlafaxine HCl ER 37.5 MG Oral Capsule Extended Release 24 Hour (Effexor XR), 37.5 mg, Oral, Daily(AM) metFORMIN HCl 1000 MG Oral Tablet (Glucophage), TAKE 1 TABLET BY MOUTH TWICE A DAY WITH BREAKFAST AND DINNER Lisinopril 20 MG Oral Tablet (Prinivil), TAKE 1 TABLET BY MOUTH EVERY DAY Meclizine HCl 25 MG Oral Tablet (Antivert), 25 mg, Oral, TID PRN (Patient not taking: Reported on 06/08/2023) Meloxicam 15 MG Oral Tablet, 15 mg, Oral, Daily(AM) (Patient not taking: Reported on 06/08/2023) Contour Monitor Device, Use as directed. Check blood sugars once daily E11.9 Contour Test In Vitro Strip (Glucose Blood), Check blood sugars once daily E11.9 Lancets, Use to test blood sugar once daily DX E11.9 atropine sulfate inj 0.4 mg, 0.4 mg Allergies: Jardiance [empagliflozin] and Victoza [liraglutide] Past Medical History: has a past medical history of Degenerative joint disease, Diabetes mellitus, type 2 (HCC), Dyslipidemia, goal to be determined, Essential hypertension, benign, HTN, goal to be determined, Impaired fasting glucose, and Obesity. Past Surgical History: has a past surgical history that includes information; information (); information (2011); laparoscopy; cholecystectomy (N/A, 12/10/2015); abd wall hernia repair, lap, reducible (N/A, 12/10/2015);and EGD, Flexible, Diagnostic (N/A, 01/17/2019). Social History: reports that she has quit smoking. She has never used smokeless tobacco. She reports that she does not drink alcohol and does not use drugs. Family History: family history includes CAD in her mother; DM in her mother; Heart attack in her mother; Heart disease in her mother; No other FH of renal disease in an other family member; emphysema in her father; kidney failure in her father; tia in her mother. Anesthesia History Type of Anesthesia: General Endotracheal and MAC-Monitored Anesthesia Care Anesthesia reaction: No History of surgical complications: None Personal history of venous thromboembolic disease: None Physical Exam Vitals: 06/08/23 1348 Temp: 36 C (96.8 F) Pulse: 74 Resp: 17 SpO2: 98% BP: 130/70 Physical Exam Vitals and nursing note reviewed. Constitutional: General: She is not in acute distress. Appearance: Normal appearance. She is obese. She is not ill-appearing. HENT: Head: Normocephalic and atraumatic. Right Ear: Tympanic membrane and ear canal normal. Left Ear: Tympanic membrane and ear canal normal. Nose: Nose normal. Mouth/Throat: Mouth: Mucous membranes are moist. Pharynx: Oropharynx is clear. Eyes: Extraocular Movements: Extraocular movements intact. Cardiovascular: Rate and Rhythm: Normal rate and regular rhythm. Heart sounds: Normal heart sounds. No murmur heard. No friction rub. No gallop. Pulmonary: Effort: Pulmonary effort is normal. No respiratory distress. Breath sounds: Normal breath sounds. No wheezing, rhonchi or rales. Abdominal: General: Bowel sounds are normal. Palpations: Abdomen is soft. Musculoskeletal: Cervical back: Normal range of motion and neck supple. No tenderness. Right knee: No swelling. Left knee: No swelling. Decreased range of motion. Lymphadenopathy: Cervical: No cervical adenopathy. Skin: General: Skin is warm and dry. Neurological: Mental Status: She is alert and oriented to person, place, and time. Psychiatric: Behavior: Behavior normal. Labs reviewed and are significant for: n/a EKG by my review is significant for: n/a Surgical Risk Scoring Revised Cardiac Risk Index (RCRI) High-risk type of surgery (examples include vascular and any open intraperitoneal or intrathoracic procedures): 0=No History of ischemic heart disease (history of myocardial infarction or positive exercise test, current compliant of chest pain considered to be secondary to myocardia ischemia, use of nitrate therapy, or ECG with pathological Q waves; do not count prior coronary revascularization procedure unless one of the other criteria for ischemic heart disease is present): 0=No History of heart failure: 0=No History of cerebrovascular disease: 0=No Diabetes mellitus requiring treatment with insulin: 0=No Preoperative serum creatinine >2.0 mg/dL (177 micromol/L): 0=No Pt has revised cardiac index score of: No Risk Factors- 0.4% (95% CI: 0.1-0.8) Screening for Obstructive Sleep Apnea (STOP-BANG) Do you Snore loudly? 1=Yes Do you often feel Tired, Fatigued, or Sleep? 0=No Has anyone Observed you Stop Breathing or Choking/Gasping during sleep? 0=No Do you have or are you being treated for High Blood Pressure? 1=Yes BMI over 35? 1=Yes Age older than 50? 1=Yes Neck size large? (For males - 17 inches or larger, For females - 16 inches or larger) 0=No Male? 0=No Score 0-2:low risk STEFANIA, 3-4: intermediate risk of STEFANIA, 5-8: high risk STEFANIA 4 Assessment and Plan Preop examination Per RCRI patient is low risk for proposed procedure. - BASIC METABOLIC PANEL; Future - HEMOGLOBIN A1C; Future Type 2 diabetes mellitus with hemoglobin A1c goal of less than 7.0% (HCC) Continue metformin and Ozempic as prescribed. Hold Ozempic as directed by surgery. - DIABETES FOOT EXAM - TELEMEDICINE DIABETIC EYE - BASIC METABOLIC PANEL; Future - HEMOGLOBIN A1C; Future Primary osteoarthritis of left knee Planning for TKA. Functional Assessment They are able to walk up a flight of stairs. The patient's functional status is good (greater than 4 METS). 1 MET: 4 METs: 4-10 METs: Can take care of self, such as eat, dress or use the toilet. Can walk to block or go up a flight of steps. Can do heavy house work. Surgical Risk Assessment Patient is low medical risk for the listed procedure. Medication adjustments: Holding Ozempic per surgery. Additional consults or testing: none * Ning Newman CMA - 06/08/2023 1:45 PM EDT Images from the original note were not included. Socks and Shoes Removed for Annual Diabetic Foot Screening RIGHT FOOT: No Reddened, Cracking, Or Open Areas Noted. RIGHT Dorsalis Pedis Pulse: Palpable RIGHT Posterior Tibial Pulse: Palpable RIGHT Monofilament:Patient reports feeling monofilament pressure on plantar surface of foot LEFT FOOT: No Reddened, Cracking or Open Areas Noted. LEFT Dorsalis Pedis Pulse: Palpable LEFT Posterior Tibial Pulse: Palpable LEFT Monofilament:Patient reports feeling monofilament pressure on plantar surface of foot Do you need diabetic shoes: No DM Foot Exam completed today. Provider aware. Ning Newman CMA Diabetic Retinopathy: Evaluating Your Eyes Diabetic retinopathy is a condition that happens when diabetes damages blood vessels in the rear ofthe eye. It can lead to vision loss. To help catch it early, have a complete dilated eye exam at least once a year. During the exam, the eye healthcare provider will review your medical history, examine your eyes, and check your vision. Women who are and have pre-existing type 1 or type 2 diabetes have an increased risk of retinopathy. Women with diabetes should have an eye exam before or in the first trimester. They should continue to be monitored every trimester and for 1 year after delivery, depending on the severity of the retinopathy. The retina is the light-sensitive part of the eye that allows you to see. High blood sugar can damage blood vessels of the retina and cause them to leak or bleed. This damage can lead to abnormal blood vessel growth. This condition is called diabetic retinopathy. You may not have symptoms early in the disease. Later, there may be floaters, blurred vision, or poor night vision. There may also be partial or complete vision loss. Early cases of diabetic retinopathy can be treated by carefully controlling blood sugar, blood pressure, and cholesterol. Surgery or laser treatments may help restore lost vision. Laser surgery can shrink abnormal blood vessels or close ones that are leaking. Medicines injected in the eye can help decrease swelling of the retina. Home care Take all medicines, including insulin or oral diabetic medicine, exactly as prescribed. Follow the diet advised by your healthcare provider. If you have high cholesterol, follow a low-fat, low-cholesterol diet. Monitor blood sugars as advised. Try to achieve your ideal weight. If you smoke, quit smoking. Tobacco use worsens the effect of diabetes on your blood vessels. If you have high blood pressure, consider buying an automatic blood pressure machine. These are available at most pharmacies. Use this to monitor your blood pressure. Report your blood pressure readings to your healthcare provider. Exercise regularly. Follow-up care Follow up with your healthcare provider, or as advised. You must have a complete eye exam at least once a year, more often if needed. Untreated diabetic retinopathy can lead to complete loss of vision. Occupational therapists can help you adapt to any vision loss you have, including learning techniques to safely administer insulin. When to seek medical advice Call your healthcare provider right away if any of these occur. Increasing blurriness or any sudden changes in your vision Sudden flashes of light inside your eye New floaters (small dots or strings that seem to be moving across your field of vision) Eye pain, redness, or discharge from your eyelid New dark spots appearing in your field of vision Halos around lights Dimness of vision Partial or complete loss of vision Women with diabetes should have a complete eye exam before becoming , or as soon as possible when they find out they are . Retinopathy sometimes worsens during . Your eye exam Your eye healthcare provider uses an eye chart and other tools to check your vision. Then he or sheexamines your eyes for signs of disease. You are given eye drops to widen (dilate) your pupils. Youmay have one or more of the following tests: Tonometry to measure fluid pressure inside the eye. Slit lamp exam to allow the healthcare provider to view the structures of your eye. Ultrasound to create an image of the eye using sound waves. Ultrasound may be used if blood is found in the clear gel that fills the eye (vitreous). Ocular coherence tomography (OCT) to create an image of the retina using light waves. This shows ifthere is fluid leaking into certain parts of the eye. It can also measure the thickness of the retina. Fluorescein angiography This test may be done to check the health of the inside lining of the eye (retina). It also checks the tiny blood vessels (capillaries) that carry blood to the retina. During the test: Photographs are taken of the retina. A dye is then injected into the bloodstream through the arm or hand. The dye travels to the capillaries in the eye. More photographs are taken of the retina. The dye causes the capillaries to stand out on the photographs. You may feel brief nausea during the procedure. For a few hours after the test, your skin, eyes, and urine may appear yellow. Talk with your healthcare provider for more information about this test. Date Last Reviewed: 07/08/201519997343-7630 [employer] [address] [place] [address]. All rights reserved. This information is not intended as a substitute for professional medical care. Always follow your healthcare professional's instructions. documented in this encounter Nursing Notes * Ning Newman CMA - 06/08/2023 1:43 PM EDT Chief Complaint Patient presents with Physical-Exam Lt TKR on 06/14/[address] Balderrama at [facility]. No form per pt. Patient has been verbally educated on the need or importance of Breast Cancer Screening, Cervical Cancer Screening, Colon Cancer Screening, Immunizations: shingles, tdap, prevnar, hep b, and Urine Microalbumin and has declined topic(s). documented in this encounter Plan of Treatment Upcoming Encounters Date Type Department Care Team (Late st Contact Info) Description 09/08/2023 12:20 PM EDT Office Visit [facility] [address] [place] [id number] Leena Alcazar CRNP [address] [place] [id number] Pending Results Name Type Priority Associated Diagnoses Date /Time BASIC METABOLIC PANEL Lab Routine Type 2 diabetes mellitus with hemoglobin A1c goal of less than 7.0% (HCC) Preop examination 06/08/2023 2:27 PM EDT HEMOGLOBIN A1C Lab Routine Type 2 diabetes mellitus with hemoglobin A1c goal of less than 7.0% (HCC) Preop examination 06/08/2023 2:27 PM EDT Scheduled Orders Name Type Priority Associated Diagnoses Orde r Schedule BASIC METABOLIC PANEL Lab Routine Type 2 diabetes mellitus with hemoglobin A1c goal of less than 7.0% (HCC) Preop examination Expected: 06/08/2023 (Approximate), Expires: 06/07/2024 HEMOGLOBIN A1C Lab Routine Type 2 diabetes mellitus with hemoglobin A1c goal of less than 7.0% (HCC) Preop examination Expected: 06/08/2023 (Approximate), Expires: 06/07/2024 Scheduled Procedures Name Priority Associated Diagnoses Date/Ti [...] this encounter Medical Devices Implanted Type Area Blockers Skiver Device Identifier Shelf Expiration Date Model / Serial / Lot Patch Hernia Med [id number] - [id number] Implanted:Qty: 1 on 12/10/2015 by Mandy Polk, DO at OR [facility] N/A: Abdomen CR BARD : DAVOL 02/02/2019 [id number] / / [id number] documented as of this encounter Procedures Procedure Name Priority Date/Time Associated Diagnosis Comments TELEMEDICINE DIABETIC EYE Routine 06/08/2023 Type 2 diabetes mellitus with hemoglobin A1c goal of less than 7.0% (HCC) documented in this encounter Results * TELEMEDICINE DIABETIC EYE (06/08/2023) 06/08/2023 Leena SANTANA DIGITAL PHOTOGRAPH Y documented in this encounter Visit Diagnoses Diagnosis Preop examination- Primary Preoperative examination, unspecified Type 2 diabetes mellitus with hemoglobin A1c goal of less than 7.0% (HCC) Primary osteoarthritis of left knee Primary localized osteoarthrosis, lower leg documented in this encounter Advance Directives Latest [...] the patient have Health Care Power of Kennel Manager? No Care Teams Dinking Machine Operator Relationship Specialty Start Date End Date Leena Alcazar CRNP [address] [place] [id number] PCP - General Nurse Practitioner 12/14/22 documented as of this encounter
--- OUTSIDE RECORDS SUMMARY | 2023-06-15 13:07 | External Medical Summary ---
Author Name Unknown Address Unknown Organization [id number]:[facility] [place] [address] [place] [address] Laboratory Report Ordering Provider Test Date Status TEX BOCANEGRA 06/08/2023 14:27:28 Final Observation Date Value Abnormality Reference (Units ) Status MYCODE SPECIMEN-SST 06/08/2023 14:27:28 Freezing of extracted DNA, whole blood and/or serum. Final Performing Location [facility] [place] [address] [facility] [id number]
--- OUTSIDE RECORDS SUMMARY | 2023-06-15 13:07 | External Medical Summary | Summary of Care ---
Author Name Unknown Organization [facility] Address [address] [place] [address] Phone [phone] Care Team Providers Care Coal Screener Name Role Phone Leena Alcazar Primary Care Provider [phone]- [phone] Reason for Visit * Reason Onset Date Comments Scan To Read 06/08/2023 Diabetic eye cam era Encounter Details Date Type Department Care Team (Late st Contact Info) Description 06/08/2023 Telephone [facility] [address] [place] [address] Leena Alcazar CRNP [address], [place] [id number] Scan To Read (Diabetic eye camera) Allergies Active Allergy Reactions Criticality Noted Date [...] on file documented as of this encounter Miscellaneous Notes * Telephone Encounter - Leonidas Curiel MD - 06/08/2023 4:55 PM EDT Retinal Scan Imaging Faye L Lalo [id number] Retinal Scan Interpretation: There is no retinopathy in both eyes Diabetes Retinal Imaging Care Plan: The retinal scan results are normal - I will forward this encounter to the Ophthalmology DM Letter Pool [[id number]], they will send a normal retinal scan letter to the patient, and the patient will be seen back for a yearly scan. Leonidas Curiel MD 06/08/2023 4:55 PM * Telephone Encounter - Ning Newman CMA - 06/08/2023 2:23 PM EDT A Diabetic Telemed Eye image was taken and requires your interpretation for ESTHER Paige. Please check your inbasket for image. Patient prefers to be seen at [facility] if a follow-up appointment is needed. documented in this encounter Plan of Treatment Upcoming Encounters Date Type Department Care Team (Late st Contact Info) Description 09/08/2023 12:20 PM EDT Office Visit [facility] [employer] [facility] [employer] [address] [place] [address] Leena Alcazar CRNP [address] [id number] Scheduled Procedures Name Priority Associated Diagnoses Date/Ti [...] 10/24/2020, Additional history exists Albumin/Creatinine Ratio 08/09/2023 07 023, 10/24/2020, 07/20/2019, Additional history exists B-12 [...] this encounter Medical Devices Implanted Type Area Crime Analyst Device Identifier Shelf Expiration Date Model / Serial / Lot Patch Hernia Med [id number] - [id number] Implanted:Qty: 1 on 12/10/2015 by Mandy Polk, DO at OR [facility] N/A: Abdomen CR BARD : DAVOL 02/02/2019 [id number] / / [id number] documented as of this encounter Advance Directives Latest Code Status on File Code Status Date Activated Date Inactivated Comments Full Code 12/10/2015 9:13 AM 12/10/2015 7:22 PM This order reflects the patients wishes and were consensually agreed upon. Question Answer Comments Discussion of Advance Directives occurred with: Not Discussed Does the patient have a Living Will? No Does the patient have Health Care Power of Sales And Marketing Agent? No Care Teams Coal Screener Relationship Specialty Start Date End Date Leena Alcazar CRNP [address] [address] PCP - General Nurse Practitioner 12/14/22 documented as of this encounter
--- OUTSIDE RECORDS SUMMARY | 2023-06-15 13:07 | External Medical Summary | Summary of Care ---
Author Name Unknown Organization [facility] Address [address] [place] [address] Phone [phone] Care Team Providers Care Electrician Deck Name Role Phone Leena Alcazar Primary Care Provider +1- [phone] Reason for Visit * Reason Onset Date Comments Scan To Read 06/08/2023 Diabetic eye cam era Encounter Details Date Type Department Care Team (Late st Contact Info) Description 06/08/2023 Telephone [facility] [address] [place] [address] Leena Alcazar CRNP [address] [place], [place] [phone] Scan To Read (Diabetic eye camera) Allergies [...] Tobacco: Former Smokeless Tobacco: Never Comments:states approx 1992 Alcohol Use Standard Drinks/Week Comments No 0 [...] encounter Miscellaneous Notes * Telephone Encounter - Ning Newman CMA - 06/08/2023 2:23 PM EDT A Diabetic Telemed Eye image was taken and requires your interpretation for ESTHER Pagie. Please check your inbasket for image. Patient prefers to be seen at [facility] if a follow-up appointment is needed. documented in this encounter Plan of Treatment Upcoming Encounters Date Type Department Care Team (Late st Contact Info) Description 09/08/2023 12:20 PM EDT Office Visit [facility] [address] [facility] [place] [phone] Leena Alcazar CRNP [address] [facility] [place] [id number] Scheduled Procedures Name Priority Associated Diagnoses Date/Ti [...] this encounter Medical Devices Implanted Type Area Concrete Block Maker Device Identifier Shelf Expiration Date Model / Serial / Lot Patch Hernia Med [id number] - [id number] Implanted:Qty: 1 on 12/10/2015 by Mandy Polk, at OR [facility] N/A: Abdomen CR BARD : DAVOL 02/02/2019 [id number] / / [id number] documented as of this encounter Advance Directives [...] the patient have Health Care Power of It Analyst? No Care Teams Electrician Deck Relationship Specialty Start Date End Date Leena Alcazar CRNP [address] [place] [id number] PCP - General Nurse Practitioner 12/14/22 documented as of this encounter
--- OUTSIDE RECORDS SUMMARY | 2023-06-15 13:07 | External Medical Summary ---
Author Name Unknown Address Unknown Organization K01:[facility] [place] [facility] [address] [facility] [address] Laboratory Report Ordering Provider Test Date Status AGUSTINA RICH 06/08/2023 14:27:28 Final Observation Date Value Abnormality Reference (Units ) Status BUN 06/08/2023 14:27:28 11 6-20 (mg/dL) Final Creatinine 06/08/2023 14:27:28 0.5 0.5-1.0 (mg/dL) Final Glomerular filtration rate/1.73 sq M.predicted [Volume Rate/Area] in Serum, Plasma or Blood by Creatinine-based formula (CKD-EPI) 06/08/2023 14:27:28 >90 >=60 (mL/min) Final eGFR is calculated based on the CKD-EPI 2020 equation Sodium 06/08/2023 14:27:28 140 135-146 (m mol/L) Final Potassium 06/08/2023 14:27:28 4.3 3.5-5.1 (m mol/L) Final Cl 06/08/2023 14:27:28 102 98-107 (mm ol/L) Final CO2 06/08/2023 14:27:28 25 22-32 (mmo l/L) Final Anion gap 06/08/2023 14:27:28 13 7-15 (mmol /L) Final Glucose 06/08/2023 14:27:28 156 Above high normal 70 -120 (mg/dL) Final Calcium 06/08/2023 14:27:28 10.0 8.4-10.2 ( mg/dL) Final Performing Location [facility] [place] [facility] [address] [facility] [address]
--- OUTSIDE RECORDS SUMMARY | 2023-06-15 13:07 | External Medical Summary ---
Author Name Unknown Address Unknown Organization K01:[facility] [place] - [address] [facility] [address] Laboratory Report Ordering Provider Test Date Status TEX BOCANEGRA 06/08/2023 14:27:28 Final Observation Date Value Abnormality Reference (Units ) Status MYCODE SPECIMEN-SST 06/08/2023 14:27:28 Freezing of extracted DNA, whole blood and/or serum. Final Performing Location [facility] [place] - [address] [facility] [address]
--- OUTSIDE RECORDS SUMMARY | 2023-06-15 13:07 | External Medical Summary ---
Author Name Unknown Address Unknown Organization K01:[facility] [place] - [address] [facility] [address] Laboratory Report Ordering Provider Test Date Status AGUSTINA RICH 06/08/2023 14:27:28 Final Observation Date Value Abnormality Reference (Units ) Status HbA1C 06/08/2023 14:27:28 8.4 Above high normal 4. 0-5.6 (%) Final The use of HbA1c to monitor glycemic status is based on normal hemoglobin and HbA composition. This test should not be used in patients with abnormal hemoglobin that affects the half life of the red blood cell or the in vivo glycation rates. Glucose, estimated average 06/08/2023 14:27:28 194 Above high normal <126 (mg/dL) Danilo nelson Performing Location [facility] [place] - [address] [facility] [address]
--- NOTE | 2023-06-17 18:10 | Discharge Summary ---
Date of Service June 17, 2023 Admission HPI Per Admitting Provider Patient denies headaches, sweats, fevers, chills, double vision, blurred vision, cough, sore throat, dysphagia, chest pain, sob, wheezing, n/v/d/c, numbness, tingling, fatigue, urinary symptoms. ROS positive for hypertension, high cholesterol, anxiety/depression, low back pain, arthritic symptoms, obesity, kidney stones. Admission Exam Per Admitting Provider Physical Exam Constitutional: WD/WN, vitals as above Respiratory: normal respiratory effort; no respiratory distress Cardiovascular: Rate/Rhythm: regular rate and regular rhythm Musculoskeletal: Varus alignment both knees with medial joint line tenderness and right knee with arthroscopic scars no scars on left. Painful range of motion with 0 to 90 degrees range of motion right and 15 to 70 degrees on left otherwise circulation and sensorimotor exam intact. Skin: no rashes, warm and dry Neurologic: normal touch/pain/proprioception Psychiatric: A+Ox3, euthymic affect Principal Diagnosis Left Knee Djd Discharge Data Allergies Allergy/AdvReac Type Severity Reaction Status Date / Time liraglutide [From Victoza] AdvReac Intermediate Stomach Verified 06/14/23 05:39 pains/decreased appetite empagliflozin AdvReac Unknown infection Verified 06/14/23 05:39 [From Jardiance] Consultations 06/09/23 13:46 Consult Hospitalist Routine Procedures Performed Operation Date: 06/14/23 07:00 Actual Procedures p Left Total Knee Arthroplasty(Left) - Curry Balderrama MD Ordered Studies 06/14/23 05:00 US - OR guided needle placemen Routine Hospital Course (1) Bilateral primary osteoarthritis of knee: Patient: AYDEE MICHAEL Admit Date: 06/14/23 MR#: [id number] Att Phy: Curry Balderrama M.D. Acct ID: [id number] Inez Phy: Leena Alcazar CRNP Date: 1970 Fam Phy: Age: 52 Location: 3E Sex: F Room/Bed: E308-1 cc: ~ *NOTICE TO RECEIVING DEMOCRAT/AGENCY This information is strictly Confidential and protected under [place] law. [place] law prohibits you from making any further disclosure of this information unless further disclosure is expressly permitted by the written consent of the person to whom it pertains or is authorized by law. A general authorization for the release of medical or other information is not sufficient for this purpose. Hospital accepts no responsibility if the information is made available to any other person, INCL UDING THE PATIENT. Date of Service June 15, 2023 Assessment & Plan (1) Bilateral primary osteoarthritis of knee: Plan: postop day 1 PT/OT protocols. Weightbearing as tolerated. DVT prophylaxis-Xarelto daily, SCDs, TRACE hose pain management as written. DC planning-patient is planning for outpatient PT. Plan for DC to home today. Admission and Anticipated Discharge Date Admission Date: June 14, 2023 Subjective Postop day 1 Patient sitting up in bed awake and alert. Finishing her breakfast. No complaints this morning. Pain is controlled. Patient has been up to the bathroom without difficulty. Denies shortness of breath, chest pain, light headedness. She is hoping to go home today. Patient had an episode last night where I was called that the drain had come disconnected at the [facility]. A new Hemovac set up was then started. Patient states that she has not had much drainage since that time. Physical Exam Physical Exam: Dressings are clean, dry, and intact. Calves are soft nontender. Neurovascular intact. Toes are mobile. She has good dorsiflexion and plantarflexion of her left foot. Minimal Hemovac drainage this morning Results & Data Vital Signs (Past 12 Hours) Vital Signs Temp Pulse Pulse Resp BP Pulse Ox O2 Del Method 06/15/23 07:58 36.8 C 76 18 124/74 95 Room Air 06/15/23 03:52 36.7 C 99 H 18 136/78 95 Room Air 06/14/23 23:39 36.6 C 95 H 16 132/72 94 Room Air Laboratory Results Laboratory Results WBC 11.97 K/ul (4.8-10.8) H 06/15/23 05:51 RBC 3.58 M/uL (4.20-5.40) L 06/15/23 05:51 Hgb 10.5 g/dl (12.0-16.0) L 06/15/23 05:51 Hct 32.0 % (37.0-47.0) L 06/15/23 05:51 MCV 89.4 fL (80.0-100.0) 06/15/23 05:51 MCH 29.3 pg (25.0-34.0) 06/15/23 05:51 MCHC 32.8 g/dL (32.0-36.0) 06/15/23 05:51 RDW Std Deviation 40.5 fL (36.4-46.3) 06/15/23 05:51 RDW Coeff of Soraya 12.5 % (11.5-14.5) 06/15/23 05:51 Plt Count 264 K/uL (130-400) 06/15/23 05:51 MPV 10.2 fL (9.4-12.4) 06/15/23 05:51 Sodium 140 mmol/L (136-145) 06/15/23 05:51 Potassium 3.8 mmol/L (3.5-5.1) 06/15/23 05:51 Chloride 107 mmol/L (98-107) 06/15/23 05:51 Carbon Dioxide 24 mmol/L (21-32) 06/15/23 05:51 Anion Gap 9 (3-11) 06/15/23 05:51 BUN 14 mg/dl (6-23) 06/15/23 05:51 Creatinine 0.48 mg/dl (0.6-1.2) L 06/15/23 05:51 Est Cr Clr Drug Dosing 160.3 ml/min 06/15/23 05:51 Est GFR ( Amer) 129.8 ml/min 06/15/23 05:51 Est GFR (Non-Af Amer) 112.0 ml/min 06/15/23 05:51 BUN/Creatinine Ratio 29.2 (10-20) H 06/15/23 05:51 Glucose 172 mg/dl (70-99(Fasting)) H 06/15/23 05:51 POC Glucose 180 mg/dl (70-99) H 06/15/23 07:26 Calcium 8.3 mg/dl (8.6-10.3) L 06/15/23 05:51 Impressions Knee X-Ray 06/14/23 09:34 XR knee LT 1 or 2V routine CLINICAL HISTORY: Surgical Post Op TECHNIQUE: 2 views of the left knee were obtained. Comparison: None available at the time of this dictation. FINDINGS: Patient is status post total knee arthroplasty with expected postsurgical changes including soft tissue swelling and subcutaneous emphysema. No periarticular lucency or hardware fracture is seen. IMPRESSION: Expected postoperative appearance status post placement of total knee arthroplas ty. ACT 112: Negative or not required by law. Electronically signed by: Jeb Mahoney M.D. 06/14/2023 1:02 PM Signed By: <Electronically signed by Sathish Mehta DO> 06/16/23 1147 <Electronically signed by Antoni Espino PA-C> 06/15/23912 Created: 06/15/23 0903 Total Time Total Time Spent Total Time Spent (In Minutes): 5 Discharge Plan Discharge Items Patient Disposition: Home - Self-Care Reason For Visit: Left Knee Osteoarthritis Discharge Diagnosis: left knee osteoarthritis Activity: Per Instructions section Weightbearing: Full weightbearing Non-emergency contact: Surgeon Call non-emergency contact if: you have any medication questions, your pain is not controlled, your temperature is above 101.5 and your wound has increased redness Follow-up/Referrals: Curry Balderrama MD [Surgeon] - ( follow-up with Dr. Balderrama in 2 weeks from the day of your surgery for your first postoperative visit.) Leena Alcazar CRNP [Primary Care Provider] - Diet: Carb Consistent or DM2 Addtl Attending Provider Instructions: ACTIVITY RECOMMENDATIONS: SELF CARE INSTRUCTIONS AFTER TOTAL KNEE REPLACEMENT A. You may need to continue a physical therapy program after discharge from the hospital. There are several options available to you. Your doctor will assist you in selecting the best one for you. 1. An out-patient facility 2 to 3 times a week for therapy or home therapy. 2. Continue working on all exercises taught to you in the hospital. Your goals should be to increase bending of your knee to 90 degrees and beyond and to fully straighten your knee. B. You may progress at your own pace from walking with a walker or crutches to a cane; then to no assistive devices. C. Make walking a part of your daily routine. Be up as much as comfortable with rest periods throughout the day. Rest with leg elevation is very important. Use the ice wrap frequently for the first 3-4 weeks. D. There are no restrictions on activities. You may ride in a car, shop, participate in four slide machine operator and all social activities. E. Wear the long elastic stockings (TRACE hose) 20 hours a day for 2 weeks after surgery. They can be removed several times a day for laundering and for a bath. F. You may shower, no tub baths until cleared by your doctor. SPECIAL CARE INSTRUCTIONS: VERY IMPORTANT TO READ AND REVIEW A. There are a few signs you need to watch for after you are home. Call [facility] if you notice any of the followin. Increased severe knee pain. Some pain is expected especially when you exercise. 2. Increased swelling in your leg or knee; pain or swelling of the calf muscle in either lower leg. 3. Any fluid drainage from the incision. 4. Shortness of breath or chest pain. B. Please call [facility] at if you have any concerns or questions about your operation or recovery. The doctor or his nurse will return your call promptly. C. You must take antibiotics before dental work, bladder, bowel or other surgery. Your doctor will provide you with a permanent care to carry describing this precaution. IMPORTANT: * REMEMBER TO TAKE XARELTO 10 MG, ONCE DAILY FOR 4 WEEKS UNLESS OTHERWISE DIRECTED. THIS IS YOUR BLOOD THINNER. * CALL IF INCREASED PAIN, REDNESS, DRAINAGE OR FEVER GREATER THAT 101. * WEAR TRACE HOSE 20 HOURS PER DAY FOR 2 WEEKS. * YAIMA Dressing - This is a large suction dressing covering your incision. This will help pull any excess drainage from the wound and allow your incision to heal properly. You may shower with this if you can keep the unit outside of the shower. If any bleeding or leakage is noted please call your doctor's office. This will remain on your incision for 7 days and then should be removed. This can be done yourself or by the home nursing staff if applicable. The entire unit is disposable once removed. Once removed, keep incision clean and dry. If redness or drainage is noted, please call your surgeon. . FOLLOW UP VISIT: If appointment is not already scheduled: Please call [facility] to make a follow-up appointment for 2 weeks after your surgery at . Stand-Alone Forms: My [facility], Pain - Opioid Pain Management, Smoking Cessation Medications and DC Order Prescriptions: New acetaminophen [Tylenol Extra Strength] 500 mg Tablet 1,000 mg PO Q8 14 Days Qty: 84 0RF cefadroxil 500 mg capsule 500 mg PO BID Qty: 14 0RF oxycodone 5 mg tablet 5 mg PO Q4H MDD 6 PRN (Reason: pain) Qty: 30 0RF Xarelto 10 mg Tablet 10 mg PO DAILY 30 Days Qty: 30 0RF Continued methocarbamol 500 mg Tablet 500 mg PO HS PRN (Reason: Muscle Spasm) atorvastatin 20 mg Tablet 20 mg PO QAM lisinopril 20 mg Tablet 20 mg PO QAM venlafaxine 37.5 mg Tablet 37.5 mg PO HS metformin 1,000 mg Tablet 1,000 mg PO BID hydroxyzine HCl 25 mg Tablet 25 mg PO QAM PRN (Reason: anxiety ) Ozempic 0.25 mg or 0.5 mg (2 mg/3 mL) Pen Injector 0.25 mg SUBCUT WK Rx Instructions: saturdays Discharge Orders: Discharge Order (Routine); Ordered 06/15/23 Ordered By: Antoni Villavicencio/Other Patient Handouts: DVT Post Op Prevention Admission Data Admit Date/Time: 06/14/23 09:34 Attending Provider: Curry Balderrama Admit Provider: Curry Balderrama Primary Care Provider: Leena Alcazar Other Providers: Norman Bowden; Curry Balderrama Other Interventions: Discharge Summary Assessment (RN) Last Done: 06/15/23 09:18
== END 2023-06-15 11:01 | disposition home or self-care (01) ==
LOC: 3E 05:00 → ASU 05:00 → SUATTDRO 09:34